=== PATIENT | female | born 1995 | race Caucasian/White ===

== ENCOUNTER 2019-12-20 11:10 | Emergency (ER) | payer MEDICAID, SELFPAY ==
[2019-12-20 11:12] VITALS: BP 135/69; PULSE 100; RESP 16; TEMP 36.4; O2SAT 99; BMI 24.2
--- NOTE | 2019-12-20 11:33 | PC.NURSE ---
PTALSO REQUESTING TO BE TREATED FOR GONORRHEA, CHANGING IN TO [facility]OSP[facility] FOR EXAM
--- NOTE | 2019-12-20 11:43 | ED.SKABFB ---
HPI - Skin/Abscess/Foreign Bdy General Chief complaint: Skin/Abscess/Foreign Body Stated complaint: abscess Time Seen by Provider: 12/20/19 11:42 Source: patient Mode of arrival: ambulatory Limitations: no limitations History of Present Illness HPI narrative: 24 yo female presenting with abscesses to right thigh and right armpit. She is a drug user who skin pops. She was recently started on Methadone and states she barely uses now. She states the lesion to her right thigh has been there for weeks, appears to be healing. Small amount of pus draining from it. No fever or chills at home. She also reports foul smelling urine and increase in vaginal discharge. She reports a history of gonorrhea and states her current symptoms are the same. She is requesting STD treatment. She denies pelvic pain. Related Data Previous Rx's Medication Instructions Recorded cephalexin [Keflex] 500 mg PO QID 7 Days #28 cap 12/20/19 doxycycline monohydrate 100 mg PO BID 7 Days #14 cap 12/20/19 Allergies Allergy/AdvReac Type Severity Reaction Status Date / Time paroxetine [From PAXIL] Allergy Severe S1 Unverified 11/02/19 19:31 lurasidone [From LATUDA] Allergy Unknown CMS Unverified 11/02/19 19:31 REACTION N.K.D.A. Allergy Unknown Uncoded 10/15/17 00:00 Review of Systems Review of Systems: Constitutional: No Fever, No Chills ENT/Mouth: No sore throat, No Rhinorrhea, No Swallowing Difficulty Eyes: No Eye Pain, No Swelling, No Redness Cardiovascular: No Chest Pain, No SOB, No Orthopnea, No Edema Respiratory: No Cough, No Sputum, No Wheezing, No dyspnea Gastrointestinal: No Nausea, No Vomiting, No Diarrhea, No abdominal Pain Genitourinary: No Dysuria, No Urinary Frequency, No Hematuria, +vaginal discharge, + foul smelling urine Musculoskeletal: No joint pain, No Myalgias Skin: + Skin Lesions, No rash Neuro: No Weakness, No Numbness, No Dizziness, No Headache Psych: + Anxiety/Panic, No Depression Heme/Lymph: + Bruising, No Lymphadenopathy Endocrine: No Polyuria, No Polydipsia PMFSH Past Medical History Attestation statement: The following information was validated with the patient. Medical History (Updated 12/20/19 @ 12:26 by DOMINIC Allen) Asthma Social History Social History Advance Directives: No Advance Directives Information Provided: No Physical Exam Vital Signs: Vital Signs: Vital Signs Temp Pulse Resp BP Pulse Ox 12/20/19 11:12 97.5 F 100 16 135/69 99 Body Mass Index 24.2 Appearance: Alert. Oriented X3. No acute distress. HEENT: normal inspection CVS: Normal heart rate and rhythm. Pulses normal. Respiratory: No respiratory distress. Skin: mid right thigh medially has 0.5cm ulceration with pink tissue, rolled borders, minimal purulent drainage, no surrounding erythema. right axilla with flutuanct 2cm boil with surrounding erythema. Extremities: diffuse small ecchymosis over all 4 extremities in various stages of healing. Neuro: Oriented X 3. No motor deficit. No sensory deficit. Refusing pelvic exam. Course Course Course Narrative: patient with multiple complaints however unable to stay in the ER for full evaluation and treatment. She is concerned she has gonorrhea again, she refused pelvic but performed self-swab. She is concerned she has a UTI, UA sent but does not want to stay for results. She left the ER prior to administration of azithromycin and Rocephin that were ordered. will need to contact patient and treat if positive. 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 she eloped prior to d/c instructions. Procedures Abscess I/D Site: upper extremity Side (if applicable): right Technique: needle aspiration Sent for culture/gram staining?: No Irrigation: Yes Packing used?: none MDM - Skin/Abscess/Foreign Bdy MDM Narrative Medical decision making narrative: likely STI, low suspicion for PID given no pelvic pain. abscess is small and localized in axilla, right thigh is healing. low suspicion for bacteremia or sepsis. Lab Data Labs: Lab Results 12/20/19 Range/Units 12:24 Urine Color YELLOW Urine Appearance CLOUDY Urine pH 5.5 (5.0-8.0) Ur Specific [place] 1.025 (1.005-1.025) Urine Protein NEG (NEG-TRACE) MG/DL Urine Glucose (UA) NEG (NEG) MG/DL Urine Ketones NEG (NEG) MG/DL Urine Blood NEG (NEG) Urine Nitrite POS H (NEG) Ur Leukocyte Esterase NEG (NEG) Urine RBC 0 (0) /HPF Urine WBC 15-29 H (0-4) /HPF Ur Squamous Epith Cells 1+ /LPF Urine Bacteria 2+ /LPF Critical Care Time Critical Care Time Critical Care Time: No Discharge Plan Discharge Clinical Impression: STI (sexually transmitted infection) Abscess of skin or subcutaneous tissue Qualifiers: Site of cutaneous abscess: extremity Site of cutaneous abscess of extremity: upper extremity Laterality: right Qualified Code(s): L02.413 - Cutaneous abscess of right upper limb Patient Disposition: Elopement Instructions: Gonorrhea (ED), Abscess Incision and Drainage (DC) Prescriptions: New doxycycline monohydrate 100 mg capsule 100 mg PO BID 7 Days Qty: 14 RF: 0 cephalexin [Keflex] 500 mg capsule 500 mg PO QID 7 Days Qty: 28 RF: 0 Interventions: ED Discharge Assessment Last Done: 12/20/19 12:54 Discharge Date/Time: 12/20/19 12:30
[2019-12-20 12:42] LABS: Glucose Urine UA NEG (NEG); Leukocyte Esterase Urine NEG (NEG); Nitrite Urine POS (NEG); PH 5.5 (5.0-8.0); Specific Gravity - Urine 1.025 (1.005-1.025); Urine Blood NEG (NEG); Urine Ketones NEG (NEG); Urine Protein NEG (NEG-TRACE)
[2019-12-20 12:44] LABS: Appearance Urine CLOUDY; Color Urine YELLOW
--- NOTE | 2019-12-20 12:51 | PC.NURSE ---
rn at bedside pt kept receiving calls on phone, telling rn to hurry up she had to go, specimens collected, meds prepared to given, pt continued on phone stated she won't hurry up and then said i gotta go and walked out, briana kern notified, meds destroyed
[2019-12-20 13:12] LABS: Bacteria Urine 2+ /LPF; RBC Urine 0 /HPF (0); Squamous Epithelial Cell Urine 1+ /LPF
[2019-12-20 15:03] LABS: CT PCR NOT DETECTED (Not Detect.); NG PCR NOT DETECTED (Not Detect.)
== END 2019-12-20 12:30 | disposition left against medical advice (07) ==
PROVIDERS: Physician Assistant; Emergency Provider Emergency Medicine
DX: L02.413 Cutaneous abscess of right upper limb (principal); L02.415 Cutaneous abscess of right lower limb; M79.651 Pain in right thigh; A54.9 Gonococcal infection, unspecified; Z79.899 Other long term (current) drug therapy
CPT/HCPCS: 10060; 81001; 87086; 87088; 87186; 87491; 87591; 96372; 99283; 99284; J0696

== ENCOUNTER 2020-07-16 03:15 | Emergency (ER) | payer MEDICAID, SELFPAY ==
[2020-07-16 03:30] VITALS: BP 136/76; PULSE 96; RESP 16; TEMP 37.2; O2SAT 97; BMI 29.0
[2020-07-16] MEDS: Lidocaine HCl 2 % MPF 5 ML VIAL 20 ML SUBCUT (04:46)
--- NOTE | 2020-07-16 04:49 | ED_ITS ---
HPI - Skin/Abscess/Foreign Bdy General Chief complaint: Skin/Abscess/Foreign Body Stated complaint: Abcess Time Seen by Provider: 07/16/20 04:06 Source: patient Mode of arrival: ambulatory Limitations: no limitations History of Present Illness HPI narrative: 24-year-old female with history of IV drug abuser, presented with multiple abscesses on her body. Patient has no fever or chills. Patient had history of multiple abscesses in the past that she open them herself. Abscesses on the back of right thigh, right hip area, front of the left thigh. This is all areas that the patient used to shoot cocaine in the past. Related Data Previous Rx's Medication Instructions Recorded cephalexin [Keflex] 500 mg PO QID 7 Days #28 cap 12/20/19 doxycycline monohydrate 100 mg PO BID 7 Days #14 cap 12/20/19 doxycycline hyclate 100 mg PO BID #20 tab 07/16/20 Allergies Allergy/AdvReac Type Severity Reaction Status Date / Time paroxetine [From PAXIL] Allergy Severe S1 Unverified 11/02/19 19:31 lurasidone [From LATUDA] Allergy Unknown CMS Unverified 11/02/19 19:31 REACTION N.K.D.A. Allergy Unknown Uncoded 10/15/17 00:00 Review of Systems Review of Systems: All other systems are reviewed and are negative Constitutional: Reports as per HPI and Reports no additional constitutional complaints Eyes: Reports as per HPI and Reports no additional eye complaints Reports system reviewed and no additional complaints, except as documented Cardiovascular: Reports as per HPI and Reports no additional cardiovascular complaints Respiratory: Reports as per HPI and Reports no additional respiratory complaints Gastrointestinal: Reports as per HPI and Reports no additional gastrointestinal complaints Genitourinary: Reports no additional female genitourinary complaints Musculoskeletal: Reports no additional musculoskeletal complaints Skin/Breast: Reports system reviewed and no additional complaints, except as docu Psychiatric: Reports no additional psychiatric complaints Endocrine: Reports no additional endocrine complaints Hematologic/Lymphatic: Reports no additional hematologic/lymphatic complaints Allergic/Immunologic: Reports no additional allergic/immunologic complaints Reports system reviewed and no additional complaints, except as documented and Reports Abnormal speech present [facility] Past Medical History Medical History Asthma Social History Social History Alcohol intake: never Patient Tobacco Use Status: Current everyday Tobacco user Smoked in Last 30 Days: Yes Use of substances other than those prescribed or required for medical reasons: Yes Substance Use Type: Crack/Cocaine, Heroin and IV Drugs Substance Use Frequency: Daily Advance Directives: No Advance Directives Information Provided: No Patient : No Physical Exam Vital Signs: Vital Signs: Last Vital Signs Temp 98.9 F 07/16/20 03:30 Pulse 96 07/16/20 03:30 Resp 16 07/16/20 03:30 BP 136/76 07/16/20 03:30 Pulse Ox 97 07/16/20 03:30 Body Mass Index 29.0 Vital signs have been reviewed as appeared to be correct. Blood pressure normal. Heart rate normal. Respiration rate normal. Temperature normal. Oxygen saturation normal. Appearance: Alert. Oriented X3. No acute distress. Head: Normal external exam. Normocephalic. Atraumatic. No Shelton signs noted. No raccoon eyes noted Eyes: PERRLA. EOMI. Conjunctiva and sclera normal. Eyelids normal. ENT: TM's Normal. Pharynx normal. Uvula midline. Moist mucous membranes. No trismus noted. No drooling noted. No muffled voice noted. Neck: Normal inspection. Neck supple. FROM. No adenopathy. Thyroid Normal. No meningeal signs. No neck mass noted. CVS: Normal heart rate and rhythm. Heart sound normal. No murmurs noted. Pulses normal throughout. Respiratory: No respiratory distress. Painless inspiration. Breath sounds normal. No wheezes/rales/rhonchi noted. Chest nontender. No accessory muscle usage noted or decreased air movement noted. Abdomen: Soft and nontender. Bowel sounds normal in all 4 quadrants. No distention noted. No organomegaly noted. No visible injury noted. Back: No CVA tenderness. Full range of motion noted. Skin: Skin warm and dry. Normal skin color. Normal skin turgor. No rashes/lesions/lacerations noted. Extremities: 4 x 5 cm area of redness, hotness, and tenderness in the back of her right thigh with mild fluctuation. 2 x 2 cm area of redness, hotness, tenderness on the right hip area with no fluctuation. 1 x 1 cm area of redness, hotness, tenderness with no fluctuation on the front of left thigh. Neuro: Oriented X 3. No motor deficit. No sensory deficit. Reflexes normal. Course Course Course Narrative: 24-year-old female with history of IV drug abuser came in with multiple areas of cellulitis/abscesses. Attempt to open 1 abscess not much pus came out, will start the patient on doxycycline. Procedures Abscess I/D Site: lower extremity (Back of her right thigh) Side (if applicable): right Local Anesthetic: lidocaine 2% Amount of anesthesia used (mL): 5 Technique: incised with blade Amount of fluid expressed (mL): 1 Sent for culture/gram staining?: No Irrigation: No Packing used?: none Discharge Plan Discharge Clinical Impression: Cellulitis, Abscess of skin or subcutaneous tissue Patient Disposition: Home, Self-Care Instructions: Cellulitis (ED) Additional Instructions: Come back to the emergency department in 2 days to check on your infected skin areas. Prescriptions: New doxycycline hyclate 100 mg tablet 100 mg PO BID Qty: 20 RF: 0 No Action doxycycline monohydrate 100 mg capsule 100 mg PO BID 7 Days Qty: 14 RF: 0 cephalexin [Keflex] 500 mg capsule 500 mg PO QID 7 Days Qty: 28 RF: 0
== END 2020-07-16 05:02 | disposition home or self-care (01) ==
PROVIDERS: Emergency Provider Emergency Medicine
DX: L02.415 Cutaneous abscess of right lower limb (principal); L03.115 Cellulitis of right lower limb; M79.604 Pain in right leg; F11.10 Opioid abuse, uncomplicated; Z71.51 Drug abuse counseling and surveillance of drug abuser
CPT/HCPCS: 10060; 99284

== ENCOUNTER 2022-01-22 21:40 | Inpatient (IN) | payer MEDICAID, SELFPAY ==
--- NOTE | ~2022-01-22 | XR_ITS ---
EXAMINATION: XR CHEST CLINICAL INFORMATION: Needle in her chest COMPARISON: 12/01/2018 TECHNIQUE: 2 views of the chest were obtained. FINDINGS: Right midlung 2.8 cm nodular opacity. No radiopaque density is noted to suggest a foreign object. No pneumothorax or effusion. Cardiomediastinal silhouette is within normal limits. XR/XR chest 2V IMPRESSION: No radiopaque density is noted to suggest a foreign object. Right midlung 2.8 cm nodular opacity. Recommend further evaluation with CT.
--- NOTE | ~2022-01-22 | CT_ITS ---
EXAMINATION: CT CHEST WITHOUT CONTRAST CLINICAL INFORMATION: Nodular opacity. Evaluate for broken needle. History of asthma. COMPARISON: CXR from 01/22/2022 TECHNIQUE: Multidetector volumetric CT imaging of the chest was done. Axial MIP volume rendering provided. Sagittal and coronal reformatted images were obtained. This CT examination was performed using dose optimization techniques as appropriate, variously including the following: *Automated exposure control *Adjustment of mA and/or kV according to patient size (this includes techniques or standardized protocols for targeted exams where dose is matched to indication/reason for exam; i.e. extremities or head) *Use of iterative reconstruction technique Note that Fleischner Society guidelines would not be followed in a patient of age < 35 years. DLP: 243 mGy-cm FINDINGS: LUNGS AND PLEURA: Trachea and central airways are widely patent and normal in caliber. Small curvilinear opacity of the lateral right upper lobe probably represents focal scarring (148, series 4). Calcified granulomas are present within each lower lobe. 1.8 x 2.4 cm nodular opacity that has small cystic spaces (or focally dilated bronchi) is present in the superior segment of the right lower lobe. Mild groundglass attenuation surrounds the nodule. 0.3 cm nodular focus is present in the anterior right lower lobe (349, series 4). Also, a few small noncalcified nodules are present in the left lower lobe, largest 0.4 cm (293, series 4). No pleural effusion. CARDIOVASCULAR: The heart size is normal. No pericardial effusion. Pulmonary arteries and thoracic aorta are normal in caliber. Coronary artery atherosclerotic calcification is absent. MEDIASTINUM AND LOWER NECK: No mediastinal mass. The esophagus and visualized portion of the thyroid gland are unremarkable. LYMPHATICS: No pathologic sized lymph nodes. UPPER ABDOMEN: Splenomegaly is present. The spleen measures 14.4 cm AP dimension. SKELETAL AND CHEST WALL: No chest wall mass. Thoracic vertebra have normal density, height and alignment. Small anterior vertebral osteophytes are noted within the lower thoracic spine. No evidence of a radiopaque foreign body in the chest. CT/CT chest wo IV con IMPRESSION: * Small calcified and noncalcified nodules are present within lower lobes. * 1.8 x 2.4 cm nodular focus of the superior segment of the right lower lobe is surrounded by a mild groundglass halo. This is a nonspecific lesion. Differential diagnosis would include possible fungal, mycobacterial or bacterial infection, or granulomatous inflammatory process. Neoplasm is unlikely in this young patient with history of asthma. Further workup is recommended. * Splenomegaly is noted.
[2022-01-22 21:46] VITALS: BP 115/72; PULSE 95; RESP 20; TEMP 38.1; O2SAT 95; BMI 30.7
[2022-01-22 23:19] LABS: Strep A Nucleic Acid Negative (Negative)
[2022-01-22 23:28] LABS: COVID-19 Test Negative (Negative); IDNOW Serial# 16C4AD1C; IDNOW Serial# BCCEAD1C; Influenza A Negative (Negative); Influenza B2 Negative (Negative)
[2022-01-23] VITALS (9 sets, daily range): BP systolic 90–107; BP diastolic 42–57; PULSE 60–101; RESP 14–19; TEMP 36.4–39.5; O2SAT 94–98; BMI 30.7
--- NOTE | 2022-01-23 03:00 | ED_ITS ---
HPI - General Adult General Chief complaint: General Medical Stated complaint: Fever, multiple complaints Time Seen by Provider: 01/23/22 03:00 Source: patient Mode of arrival: ambulatory Limitations: no limitations History of Present Illness HPI narrative: Patient IV drug user been having fever since yesterday sore throat body aches coughing with green sputum cellulitic rash all over the body nauseated vomited i n the ER . When patient triaged at 21:40 temperature 100.6 degrees COVID influenza negative strep negative patient also saying that while using IV drugs the right chest wall. Also patient did oral sex and feeling her tongue weird. Patient triaged at 01/22/2022 at 21:40 and was seen at 01/23 0300 Related Data Previous Rx's Medication Instructions Recorded cephalexin 500 mg capsule (Keflex) 500 mg PO QID 7 days #28 caps 12/20/19 doxycycline monohydrate 100 mg 100 mg PO BID 7 days #14 caps 12/20/19 capsule doxycycline hyclate 100 mg tablet 100 mg PO BID #20 tabs 07/16/20 Allergies Allergy/AdvReac Type Severity Reaction Status Date / Time paroxetine [From PAXIL] Allergy Severe S1 Unverified 11/02/19 19:31 lurasidone [From LATUDA] Allergy Unknown CMS Unverified 11/02/19 19:31 REACTION N.K.D.A. Allergy Unknown Uncoded 10/15/17 00:00 Review of Systems Review of Systems: Yes all other systems are reviewed and are negative [facility] Past Medical History Medical History (Updated 01/23/22 @ 06:16 by Oseas Pearson MD) Asthma Mood disorder Substance use disorder Social History Social History Alcohol intake: never Patient Tobacco Use Status: Current everyday Tobacco user Smoked in Last 30 Days: Yes Substance Use Type: Crack/Cocaine, Heroin and Marijuana Substance Use Frequency: Daily Advance Directives: No Advance Directives Information Provided: No Physical Exam ED Vital Signs: Vital Signs - 24 hr 01/22/22 21:46 01/23/22 03:26 01/23/22 04:35 Temperature 100.6 F H 103.1 F H Pulse Rate 95 101 H 90 Respiratory Rate 20 14 19 Blood Pressure 115/72 107/57 L 95/43 L Pulse Oximetry 95 95 94 Oxygen Delivery Method Room Air Room Air Room Air 01/23/22 05:31 Temperature 99.7 F Pulse Rate 88 Respiratory Rate 19 Blood Pressure 96/45 L Pulse Oximetry 95 Oxygen Delivery Method Room Air BMI result Body Mass Index 30.7 Appearance: Alert. Oriented X3. Febrile nauseated Eyes: PERRLA, No Nystagmus ENT: Pharynx normal. Oral Mucosa moist Neck: Normal inspection. Neck supple. CVS: Normal heart rate and rhythm. Pulses normal. Respiratory: No respiratory distress. Equal air entry bilateral, no wheezing/rales/rhonchi Abdomen: Soft and nontender. Bowel sounds are present, no mass palpable, no CVA tenderness Skin: Skin warm and dry. . Normal skin turgor. Multiple Cellulitic areas all over the body Extremities: No lower extremity edema. No calf tenderness every 8 months all over for Neuro: Oriented X 3. No motor deficit. No sensory deficit.No cerebellar signs , cranial nerves II-XII intact Medications Administered Discontinued Medications Generic Name Dose Route Start Last Admin Trade Name Freq PRN Reason Stop Dose Admin Acetaminophen 650 mg 01/23/22 03:14 01/23/22 03:51 Acetaminophen 325 Mg Tablet PO 01/23/22 03:15 650 mg ONCE ONE Administration Sodium Chloride 1,000 mls @ 999 mls/hr 01/23/22 03:13 01/23/22 05:37 Ns IV 01/23/22 04:13 Infused .Q1H1M ONE Infusion Piperacillin Sod/Tazobactam 50 mls @ 100 mls/hr 01/23/22 03:13 01/23/22 05:38 Sod 3.375 gm/ Sodium Chloride IV 01/23/22 03:42 Infused ONCE ONE Infusion Vancomycin HCl 2,000 mg in 520 mls @ 260 mls/hr 01/23/22 03:30 01/23/22 05:17 Vancomycin/Ns IV 01/23/22 05:29 260 mls/hr ONCE ONE Administration Sodium Chloride 1,000 mls @ 999 mls/hr 01/23/22 04:15 01/23/22 05:17 Ns IV 01/23/22 05:15 999 mls/hr .Q1H1M ONE Administration Sodium Chloride 2,585.49 mls @ 2,585.49 mls/hr 01/23/22 05:05 01/23/22 05:36 Ns 30 ml/kg infuse over 1 hr (2585.49 ml) 01/23/22 06:04 Not Given IV .Q1H STA Ibuprofen 600 mg 01/23/22 03:14 01/23/22 03:51 Ibuprofen 600 Mg Tablet PO 01/23/22 03:15 600 mg ONCE ONE Administration Ondansetron HCl 4 mg 01/23/22 03:14 01/23/22 04:30 Ondansetron Hcl 4 Mg/2 Ml Vial IVPUSH 01/23/22 03:15 4 mg ONCE ONE Administration Medical Decision Making Medical Decision Making [facility] Narrative: Patient IVDA user with fever tachycardia and multiple cellulitic patches meeting criteria for sepsis IV fluids patient did have a unprotected sex and history of STI in the past including Gonorrhea. Possible each patient might have disseminated gonorrhea with diffuse joint pain and rash patient was given IV antibiotic to cover staph vancomycin and start on Rocephin admit to hospitalist service Consideration of admission/observation: Consideration of Admission/Observation Lab Attestation: I reviewed the patient's lab results. Discharge Plan Discharge Clinical Impression: Cellulitis, UTI (urinary tract infection), Substance use disorder Patient Disposition: Admitted As Inpatient
[2022-01-23 03:46] LABS: Appearance Urine Turbid; Color Urine Dark Yellow; Glucose Urine UA Negative (Negative); Leukocyte Esterase Urine Large (3+) (Negative); Nitrite Urine Negative (Negative); Specific Gravity - Urine 1.015 (1.005-1.025); UMIC TRIGGER UACC YES; Urine Blood Trace (Negative); Urine Ketones Trace mg/dL (Negative); Urine Protein 30 (1+) mg/dL (Neg-Trace)
[2022-01-23 03:47] LABS: UPreg QC Valid YES; Urine Pregnancy NEGATIVE (NEGATIVE)
[2022-01-23] MEDS: Ibuprofen 600 MG TABLET PO (03:51)
[2022-01-23] MEDS: Acetaminophen 325 MG TABLET 650 MG PO ×2 (03:51→20:57)
[2022-01-23 03:53] LABS: Bacteria Urine 4+ (None Seen); RBC Urine 0-2 /HPF (0-2); Squamous Epithelial Cell Urine >20 /HPF (0-2); UACC Culture Trigger YES; WBC Urine >50 /HPF (0-5)
[2022-01-23 04:00] LABS: Amphetamine Screen Urine Not Detected (Not Detect); Barbiturates, Urine Not Detected (Not Detect); Benzodiazepines Screen Urine Not Detected (Not Detect); Cannabinoid Screen Urine POSITIVE (Not Detect); Cocaine Screen Urine POSITIVE (Not Detect); Fentanyl, urine POSITIVE (Not Detect); Opiate Screen Urine Not Detected (Not Detect); Phencyclidine Screen Urine Not Detected (Not Detect)
[2022-01-23 04:24] LABS: MANUAL DIFF FLAG NO
[2022-01-23 04:26] LABS: Basophils Percent Auto 0.2 % (0-2); Eosinophils Percent Auto 0.1 % (0-4); Hematocrit 35.8 % (37.0-47.0); Hemoglobin 12.4 g/dl (12.0-16.0); Imm Gran Abs Auto 0.07 X10*3/uL (0.00-0.03); Imm Gran Pct Auto 0.6 % (0.0-0.4); Lymphocytes Absolute Auto 0.6 X10*3/uL (1.2-4.9); Lymphocytes Percent Auto 5.2 % (20-40); Mean Corpuscular HGB Conc 34.6 g/dl (31.0-35.0); Mean Corpuscular Hemoglobin 27.6 pg (27.0-33.0); Mean Corpuscular Volume 79.6 fL (80.0-98.0); Mean Platelet Volume 10.4 fL (9.4-12.3); Monocytes Absolute Auto 0.7 X10*3/uL (0.1-1.2); Monocytes Percent Auto 6.2 % (2-11); Neutrophils Absolute Auto 9.9 x10*3/uL (2.0-8.3); Neutrophils Percent Auto 87.7 % (45-73); Platelet Count 143 X10*3/uL (160-400); Red Cell Distribution Width 12.4 % (11.0-16.0); White Blood Count 11.3 X10*3/uL (4.8-10.8)
--- NOTE | 2022-01-23 04:27 | PC.NURSE ---
pt tough stick. multiple nurses and ed techs attempt lab draws and iv insertion. dr calderón inserted iv via ultrasound
[2022-01-23] MEDS: ondansetron HCL 4 MG/2 ML VIAL IVPUSH (04:30)
[2022-01-23] MEDS: 0.9 % Sodium Chloride 1,000 ML 999 ML IV ×2 (04:31→05:17)
[2022-01-23] MEDS: Piperacillin Sodium/Tazobactam 3.375 GM in 0.9 % Sodium Chloride 50 ML IV (04:31)
[2022-01-23 04:39] LABS: Lactic Acid 0.8 mmol/L (0.5-2.0)
[2022-01-23 04:43] LABS: Alanine Aminotransferase 43 U/L (0-31); Albumin Level 3.7 g/dL (3.5-5.0); Alkaline Phosphatase 89 U/L (39-117); Anion Gap 17 (12-20); Aspartate Amino Transferase 55 U/L (5-31); Bilirubin Total 1.4 mg/dL (0.0-1.0); Blood Urea Nitrogen 25 mg/dL (9-16); Calcium 8.3 mg/dL (8.4-10.2); Carbon Dioxide 23 mmol/L (22-29); Chloride 96 mmol/L (96-108); Creatinine Clr Calc Pharmacy 56.1; Estimated Glomerular Filt Rate 37; Glucose Random 75 mg/dL (60-115); Potassium 3.9 mmol/L (3.3-5.1); Sodium 132 mmol/L (135-145)
--- NOTE | 2022-01-23 05:47 | PM.IMHP ---
History of Present Illness Date of Service: 01/23/22 Chief Complaint: Fever This is a 26-year-old female with pertinent history of mood disorder, IV substance use disorder presents to the emergency department for evaluation of fever/generalized malaise/rash. Patient states she has been feeling unwell for the last 2 days. She has generalized body ache, malaise and poor appetite. Patient noticed a rash all over body that started 2 days ago. States her last IV drug use was on the day of presentation, she injected cocaine and heroin in her upper extremity. States her hands hurt and she has difficulty making a wrist. Also has been having right ankle pain. Patient states she had unprotected vaginal and oral intercourse 2 days ago and thinks her symptoms started after. Does have history of gonorrhea in the past. Also has throat ache. Also endorses change in color and smell of urine with occasional urinary hesitancy and frequency. Patient denies chest discomfort, palpitations, abdominal pain, shortness of breath, changes in bowel habits Review of Systems Constitutional: Constitutional: Reports chills, Reports fatigue, Reports fever(s), Reports lethargy and Reports malaise Cardiovascular: Cardiovascular: Reports no additional cardiovascular complaints Respiratory: Respiratory: Reports no additional respiratory complaints Gastrointestinal: Gastrointestinal: Reports no additional gastrointestinal complaints Genitourinary: Genitourinary: Reports urinary frequency, Reports urinary hesitancy and Reports urinary urgency Endocrine: Endocrine: Reports fatigue [facility] Medical History (Updated 01/23/22 @ 06:16 by Oseas Pearson MD) Asthma Mood disorder Substance use disorder Functional capacity: independent ambulation Pertinent family history: Does not know of significant medical history in family members Social History Alcohol intake: never Patient Tobacco Use Status: Current everyday Tobacco user Substance Use Type: Crack/Cocaine, Heroin and IV Drugs Advance Directives: No Advance Directives Information Provided: No Meds Allergies Allergy/AdvReac Type Severity Reaction Status Date / Time paroxetine [From PAXIL] Allergy Severe S1 Unverified 11/02/19 19:31 lurasidone [From LATUDA] Allergy Unknown CMS Unverified 11/02/19 19:31 REACTION N.K.D.A. Allergy Unknown Uncoded 10/15/17 00:00 Active Medications: Current Medications Acetaminophen (Acetaminophen 325 Mg Tablet) 650 mg PO Q6H PRN PRN Reason: Pain, Mild (Pain Scale 1-3) Sodium Chloride (Ns) 2,585.49 mls @ 2,585.49 mls/hr 30 ml/kg infuse over 1 hr (2585.49 ml) IV .Q1H STA Stop: 01/23/22 06:04 Last Admin: 01/23/22 05:36 Dose: Not Given Melatonin (Melatonin 3 Mg Tablet) 6 mg PO BEDTIME PRN PRN Reason: Insomnia Ondansetron HCl (Ondansetron Hcl 4 Mg/2 Ml Vial) 4 mg IVPUSH Q8H PRN PRN Reason: Nausea and Vomiting Pharmacy Consult (Consult Rx Vancomycin Dosing) 1 each MISCELLANE DAILY PRN PRN Reason: Consult order Pharmacy Consult (Consult Rx Perform Med Rec) 1 each MISCELLANE ONCE PRN PRN Reason: Consult order Sodium Chloride (0.9 % Sodium Chloride Flush 3 Ml Syringe) 3 ml IVFLUSH QSHIFT JUDY Physical Exam Vital Signs and Narrative: Vital Signs: Last Vital Signs Temp 99.7 F 01/23/22 05:31 Pulse 88 01/23/22 05:31 Resp 19 01/23/22 05:31 BP 96/45 L 01/23/22 05:31 Pulse Ox 95 01/23/22 05:31 O2 Del Method 01/23/22 05:31 BMI result Body Mass Index 30.7 Young female lying in bed in no distress Neck supple, no JVD Tachycardic with regular rhythm, S1-S2 heard Regular breath sounds bilaterally, no wheezing or crackles appreciated Abdomen soft nontender, no guarding, no rigidity Patient is awake, alert and oriented to self, place, time and person ; no focal motor deficit Skin: Maculopapular rash present over face, chest, extremities ; IV track morales seen on bilateral upper extremities Psych: Normal mood No pedal edema Results Labs CBC and Chem 7: 01/23/22 04:18 01/23/22 04:18 Labs: Laboratory Results - last 24 hr 01/22/22 01/22/22 01/22/22 23:01 23:01 23:01 MCV MCH MCHC RDW Plt Count MPV Immature Gran % (Auto) Neut % (Auto) Lymph % (Auto) [place] % (Auto) Eos % (Auto) Baso % (Auto) Lymph # (Auto) [place] # (Auto) Eos # (Auto) Baso # (Auto) Abs Immat Gran (auto) Absolute Neuts (auto) Absolute Nucleated RBC Nucleated RBC % (auto) Anion Gap Estim Creat Clear Calc Estimated GFR Random Glucose Lactic Acid Calcium Total Bilirubin AST ALT Alkaline Phosphatase Total Protein Albumin Urine Color Urine Appearance Urine pH Ur Specific [place] Urine Protein Urine Glucose (UA) Urine Ketones Urine Blood Urine Nitrite Ur Leukocyte Esterase Urine RBC Urine WBC Ur Squamous Epith Cells Urine Bacteria Hyaline Casts Urine Test Urine Opiates Screen Urine Fentanyl Screen Ur Barbiturates Screen Ur Phencyclidine Scrn Ur Amphetamines Screen U Benzodiazepines Scrn Urine Cocaine Screen U Marijuana (THC) Screen COVID-19 (TONEY) Negative COVID-19 Clin Com See Note Influenza Type A (SHREYA) Negative Influenza Type B (SHREYA) Negative Influenza A & B Note See Note S. pyogenes GrpA SHREYA Negative 01/23/22 01/23/22 01/23/22 03:29 03:29 03:29 MCV MCH MCHC RDW Plt Count MPV Immature Gran % (Auto) Neut % (Auto) Lymph % (Auto) [place] % (Auto) Eos % (Auto) Baso % (Auto) Lymph # (Auto) [place] # (Auto) Eos # (Auto) Baso # (Auto) Abs Immat Gran (auto) Absolute Neuts (auto) Absolute Nucleated RBC Nucleated RBC % (auto) Anion Gap Estim Creat Clear Calc Estimated GFR Random Glucose Lactic Acid Calcium Total Bilirubin AST ALT Alkaline Phosphatase Total Protein Albumin Urine Color Dark Yellow Urine Appearance Turbid Urine pH 5.0 Ur Specific [place] 1.015 Urine Protein 30 (1+) H Urine Glucose (UA) Negative Urine Ketones Trace Urine Blood Trace H Urine Nitrite Negative Ur Leukocyte Esterase Large (3+) H Urine RBC 0-2 Urine WBC >50 H Ur Squamous Epith Cells >20 Urine Bacteria 4+ Hyaline Casts 6-10 Urine Test NEGATIVE Urine Opiates Screen Not Detected Urine Fentanyl Screen POSITIVE H Ur Barbiturates Screen Not Detected Ur Phencyclidine Scrn Not Detected Ur Amphetamines Screen Not Detected U Benzodiazepines Scrn Not Detected Urine Cocaine Screen POSITIVE H U Marijuana (THC) Screen POSITIVE H COVID-19 (TONEY) COVID-19 Clin Com Influenza Type A (SHREYA) Influenza Type B (SHREYA) Influenza A & B Note S. pyogenes GrpA SHREYA 01/23/22 01/23/22 01/23/22 04:18 04:18 04:18 MCV 79.6 L MCH 27.6 MCHC 34.6 RDW 12.4 Plt Count 143 L MPV 10.4 Immature Gran % (Auto) 0.6 H Neut % (Auto) 87.7 H Lymph % (Auto) 5.2 L [place] % (Auto) 6.2 Eos % (Auto) 0.1 Baso % (Auto) 0.2 Lymph # (Auto) 0.6 L [place] # (Auto) 0.7 Eos # (Auto) 0.0 Baso # (Auto) 0.0 Abs Immat Gran (auto) 0.07 H Absolute Neuts (auto) 9.9 H Absolute Nucleated RBC 0.000 Nucleated RBC % (auto) 0.0 Anion Gap 17 Estim Creat Clear Calc 56.1 Estimated GFR 37 Random Glucose 75 Lactic Acid 0.8 Calcium 8.3 L Total Bilirubin 1.4 H AST 55 H ALT 43 H Alkaline Phosphatase 89 Total Protein 7.0 Albumin 3.7 Urine Color Urine Appearance Urine pH Ur Specific [place] Urine Protein Urine Glucose (UA) Urine Ketones Urine Blood Urine Nitrite Ur Leukocyte Esterase Urine RBC Urine WBC Ur Squamous Epith Cells Urine Bacteria Hyaline Casts Urine Test Urine Opiates Screen Urine Fentanyl Screen Ur Barbiturates Screen Ur Phencyclidine Scrn Ur Amphetamines Screen U Benzodiazepines Scrn Urine Cocaine Screen U Marijuana (THC) Screen COVID-19 (TONEY) COVID-19 Clin Com Influenza Type A (SHREYA) Influenza Type B (SHREYA) Influenza A & B Note S. pyogenes GrpA SHREYA Imaging Radiologist's Impressions: Impressions Chest X-Ray 01/22/22 22:06 IMPRESSION: No radiopaque density is noted to suggest a foreign object. Right midlung 2.8 cm nodular opacity. Recommend further evaluation with CT. Assessment and Plan (1) Substance use disorder: Status: Acute (2) Mood disorder: Status: Acute (3) Sepsis: Status: Acute Plan This is a 26-year-old female with pertinent history of mood disorder, IV substance use disorder presents to the emergency department for evaluation of fever/generalized malaise/rash. #. Severe sepsis -pt has UTI + right lower extremity cellulitis. Also concern for DGI in a patient with rash, tenosynovitis and polyarthralgia after unprotected intercourse. Does have history of cellulitis and gonorrhea in the past. -initiating vancomycin and Rocephin empirically. -lactic acid and blood cultures obtained. Also obtaining workup for STIs -resuscitating with IV crystalloids @30cc/kg. #. Acute kidney injury stage I, prerenal due to intravascular volume depletion: Monitor with fluid resuscitation and avoid nephrotoxins #. Substance use disorder: CARE team and addiction team consulted. Monitor for withdrawal. Patient on methadone #. Mood disorder: Continue home medications #. Transamnitis due to sepsis #. Imaging with nodular opacity on chest x-ray. Further evaluating with CT chest, pending. Med rec pending DVT prophylaxis: Lovenox 40 mg daily Full code Regular diet Admit as inpatient and will require two night minimum hospital stay for IV antibiotics Quality Stroke Does the patient have a stroke diagnosis?: No VTE Prior VTE?: No VTE Risk Level:: Medical - low VTE Device Contraindication: Treatment Not Indicated VTE Drug Contraindication: N/A - Med Ordered
[2022-01-23] MEDS: 0.9 % Sodium Chloride Flush 3 ML SYRINGE IVFLUSH ×3 (07:39→22:05)
[2022-01-23] MEDS: cefTRIAXone sodium 1 GM in 0.9 % Sodium Chloride 50 ML IV (07:39)
[2022-01-23 08:03] LABS: HIV AB/AG Nonreactive (Nonreactive); HIV Num 1 0.06 S/CO (0.00-0.99)
[2022-01-23 08:14] LABS: Syphilis Screen Nonreactive (Nonreactive)
[2022-01-23 08:20] LABS: HBS Num1 73.55 mIU/mL (0-7.99); HBc Num1 0.12 S/CO (0.00-0.79); HBsAGNum1 0.22 S/CO (0.00-0.99); Hepatitis A Antibody IgM 0.16 Index (0-0.79); Hepatitis B Core Antibody Nonreactive (Nonreactive); Hepatitis B Surface Antigen Negative (Negative); ~HepC Num1 13.67 S/CO (0.00-0.79); ~Hepatitis A Antibody IgM Nonreactive (Nonreactive); ~Hepatitis B Surface Antibody REACTIVE (Nonreactive); ~Hepatitis C Antibody Reactive (Nonreactive)
--- NOTE | 2022-01-23 08:34 | PHA.PROG ---
Admission Date/Time: January 23, 2022 05:41 Indication: BACTEREMIA Weight in k.183 kg Adjusted body weight in Kg: [place] body weight in Kg: Obesity Dosing Indication % IBW: Serum Creatinine - Last 168 Hours 01/23/22 04:18 Creatinine 1.65 H Estimated CrCl and GFR - Last 168 Hours 01/23/22 04:18 Estim Creat Clear Calc 56.1 Estimated GFR 37 Vancomycin Loading Dose: 2000 MG Current Vancomycin Dosing Regimen: 1250 Q24H Vancomycin Monitoring using AUC goal of 400 - 600 range with trough as surrogate marker: AUC 432; TROUGH 12.6 Date and Time for next Vancomycin Level to be drawn: RANDOM 01/25@0500 Pharmacist Comments on Vancomycin Plan: 15MG/KG CONSIDER GOING TO Q12H DOSING SINCE PATIENT IS IN [place] AND RENAL FUNCTION MAY IMPROVE RAPIDLY Vancomycin dosing will take advantage of [employer] as a clinical decision support tool that uses Bayesian modeling to calculate individual patient's pharmacokinetic parameters and forecast the patient's drug concentration time course with the target goal AUC 24 range of 400 - 600 mg/L/hr.
--- NOTE | 2022-01-23 08:42 | PHA.MEDREC ---
Pharmacy Consult ? Medication Reconciliation Pharmacy has completed the medication reconciliation. Spoke to patient at bedside, she was a good historian. She states she has not taken her meds in about a month. Takes methadone, goes to [facility]
--- NOTE | 2022-01-23 09:17 | HE.PHANOTE ---
Methadone verification recieved Patient receives 120 mg as one dose and is given a take home dose of 20mg. Patient was given enough bottles to last until 01/22/22 Total dose of 140mg daily. Confirmed by Madelaine ALVAREZ with N at [phone]
--- NOTE | 2022-01-23 09:22 | MHC.CM.PN ---
CM spoke with Patient who states that she lives with a Friend and receives her Methadone from [facility] in [facility]. Home/resume Methadone is the goal and CM has initiated and will follow for dc planning. Patient has received [employer] vax x2w and she has no PCP.
[2022-01-23] MEDS: Enoxaparin Sodium 40 MG/0.4 ML SYRINGE SUBCUT (09:54)
--- NOTE | 2022-01-23 11:54 | HO.PM.IMPN ---
Subjective Subjective Date of Service: 01/23/22 Interval History: cc: vaginal discharge, fevers interval history:unchanged Cardiovascular Cardiovascular: Reports no additional cardiovascular complaints Respiratory Respiratory: Reports no additional respiratory complaints Physical Exam Vital Signs: Vital Signs: Last Vital Signs Temp 97.9 F 01/23/22 07:54 Pulse 77 01/23/22 07:54 Resp 16 01/23/22 07:54 BP 98/46 L 01/23/22 07:54 Pulse Ox 96 01/23/22 07:54 O2 Del Method 01/23/22 07:54 BMI result Body Mass Index 30.7 General: AO X 3, ill appearing Resp: CTA bilateral, no accessory muscles used CVS: S1,S2,RRR GI: soft, non tender, non distended Neuro: motor grossly intact, alert Psych: appropriate affect, appropriate insight Objective Data Active Medications Acetaminophen (Acetaminophen 325 Mg Tablet) 650 mg PO Q6H PRN PRN Reason: Pain, Mild (Pain Scale 1-3) Baclofen (Baclofen 10 Mg Tablet) 10 mg PO TID [facility] Bupropion HCl (Bupropion Hcl Xl 300 Mg Tab.Er.24h) 300 mg PO QAM [facility] Enoxaparin Sodium (Enoxaparin Sodium 40 Mg/0.4 Ml Syringe) 40 mg SUBCUT Q24H [facility] Last Admin: 01/23/22 09:54 Dose: 40 mg Documented By: ONOFRE Gabapentin (Gabapentin 400 Mg Capsule) 800 mg PO TID [facility] Ceftriaxone Sodium 1 gm/ (Sodium Chloride) 50 mls @ 100 mls/hr IV Q24H [facility] Last Infusion: 01/23/22 08:09 Dose: 0 mls/hr Documented By: ONOFRE Vancomycin HCl 1,250 mg/ (Sodium Chloride) 250 mls @ 166.667 mls/hr IV Q24H [facility] Melatonin (Melatonin 3 Mg Tablet) 6 mg PO BEDTIME PRN PRN Reason: Insomnia Ondansetron HCl (Ondansetron Hcl 4 Mg/2 Ml Vial) 4 mg IVPUSH Q8H PRN PRN Reason: Nausea and Vomiting Pharmacy Consult (Consult Rx Vancomycin Dosing) 1 each MISCELLANE DAILY PRN PRN Reason: Consult order Pharmacy Consult (Consult Rx Perform Med Rec) 1 each MISCELLANE ONCE PRN PRN Reason: Consult order Pharmacy Consult (Consult Rx Vancomycin Dosing) 1 each MISCELLANE DAILY PRN PRN Reason: Consult order Sodium Chloride (0.9 % Sodium Chloride Flush 3 Ml Syringe) 3 ml IVFLUSH QSHIFT JUDY Last Admin: 01/23/22 07:39 Dose: 3 ml Documented By: ONOFRE Labs CBC & Chem 7: 01/23/22 04:18 01/23/22 04:18 Labs: Laboratory Results - last 24 hr 01/22/22 01/22/22 01/22/22 23:01 23:01 23:01 MCV MCH MCHC RDW Plt Count MPV Immature Gran % (Auto) Neut % (Auto) Lymph % (Auto) [place] % (Auto) Eos % (Auto) Baso % (Auto) Lymph # (Auto) [place] # (Auto) Eos # (Auto) Baso # (Auto) Abs Immat Gran (auto) Absolute Neuts (auto) Absolute Nucleated RBC Nucleated RBC % (auto) Anion Gap Estim Creat Clear Calc Estimated GFR Random Glucose Lactic Acid Calcium Total Bilirubin AST ALT Alkaline Phosphatase Total Protein Albumin Urine Color Urine Appearance Urine pH Ur Specific [place] Urine Protein Urine Glucose (UA) Urine Ketones Urine Blood Urine Nitrite Ur Leukocyte Esterase Urine RBC Urine WBC Ur Squamous Epith Cells Urine Bacteria Hyaline Casts Urine Test Urine Opiates Screen Urine Fentanyl Screen Ur Barbiturates Screen Ur Phencyclidine Scrn Ur Amphetamines Screen U Benzodiazepines Scrn Urine Cocaine Screen U Marijuana (THC) Screen T.pallidum Ab (EIA) COVID-19 (TONEY) Negative COVID-19 Clin Com See Note Hepatitis A IgM Ab Hep Bs Antigen Hep Bs Antibody Hep B Core Total Ab Hepatitis C Ab (EIA) HIV 1&2 Ab/P24 Ag 4thGn Influenza Type A (SHREYA) Negative Influenza Type B (SHREYA) Negative Influenza A & B Note See Note S. pyogenes GrpA SHREYA Negative 01/23/22 01/23/22 01/23/22 03:29 03:29 03:29 MCV MCH MCHC RDW Plt Count MPV Immature Gran % (Auto) Neut % (Auto) Lymph % (Auto) [place] % (Auto) Eos % (Auto) Baso % (Auto) Lymph # (Auto) [place] # (Auto) Eos # (Auto) Baso # (Auto) Abs Immat Gran (auto) Absolute Neuts (auto) Absolute Nucleated RBC Nucleated RBC % (auto) Anion Gap Estim Creat Clear Calc Estimated GFR Random Glucose Lactic Acid Calcium Total Bilirubin AST ALT Alkaline Phosphatase Total Protein Albumin Urine Color Dark Yellow Urine Appearance Turbid Urine pH 5.0 Ur Specific [place] 1.015 Urine Protein 30 (1+) H Urine Glucose (UA) Negative Urine Ketones Trace Urine Blood Trace H Urine Nitrite Negative Ur Leukocyte Esterase Large (3+) H Urine RBC 0-2 Urine WBC >50 H Ur Squamous Epith Cells >20 Urine Bacteria 4+ Hyaline Casts 6-10 Urine Test NEGATIVE Urine Opiates Screen Not Detected Urine Fentanyl Screen POSITIVE H Ur Barbiturates Screen Not Detected Ur Phencyclidine Scrn Not Detected Ur Amphetamines Screen Not Detected U Benzodiazepines Scrn Not Detected Urine Cocaine Screen POSITIVE H U Marijuana (THC) Screen POSITIVE H T.pallidum Ab (EIA) COVID-19 (TONEY) COVID-19 Clin Com Hepatitis A IgM Ab Hep Bs Antigen Hep Bs Antibody Hep B Core Total Ab Hepatitis C Ab (EIA) HIV 1&2 Ab/P24 Ag 4thGn Influenza Type A (SHREYA) Influenza Type B (SHREYA) Influenza A & B Note S. pyogenes GrpA SHREYA 01/23/22 01/23/22 01/23/22 04:18 04:18 04:18 MCV 79.6 L MCH 27.6 MCHC 34.6 RDW 12.4 Plt Count 143 L MPV 10.4 Immature Gran % (Auto) 0.6 H Neut % (Auto) 87.7 H Lymph % (Auto) 5.2 L [place] % (Auto) 6.2 Eos % (Auto) 0.1 Baso % (Auto) 0.2 Lymph # (Auto) 0.6 L [place] # (Auto) 0.7 Eos # (Auto) 0.0 Baso # (Auto) 0.0 Abs Immat Gran (auto) 0.07 H Absolute Neuts (auto) 9.9 H Absolute Nucleated RBC 0.000 Nucleated RBC % (auto) 0.0 Anion Gap 17 Estim Creat Clear Calc 56.1 Estimated GFR 37 Random Glucose 75 Lactic Acid 0.8 Calcium 8.3 L Total Bilirubin 1.4 H AST 55 H ALT 43 H Alkaline Phosphatase 89 Total Protein 7.0 Albumin 3.7 Urine Color Urine Appearance Urine pH Ur Specific [place] Urine Protein Urine Glucose (UA) Urine Ketones Urine Blood Urine Nitrite Ur Leukocyte Esterase Urine RBC Urine WBC Ur Squamous Epith Cells Urine Bacteria Hyaline Casts Urine Test Urine Opiates Screen Urine Fentanyl Screen Ur Barbiturates Screen Ur Phencyclidine Scrn Ur Amphetamines Screen U Benzodiazepines Scrn Urine Cocaine Screen U Marijuana (THC) Screen T.pallidum Ab (EIA) COVID-19 (TONEY) COVID-19 Clin Com Hepatitis A IgM Ab Hep Bs Antigen Hep Bs Antibody Hep B Core Total Ab Hepatitis C Ab (EIA) HIV 1&2 Ab/P24 Ag 4thGn Influenza Type A (SHREYA) Influenza Type B (SHREYA) Influenza A & B Note S. pyogenes GrpA SHREYA 01/23/22 01/23/22 01/23/22 06:40 06:40 06:40 MCV MCH MCHC RDW Plt Count MPV Immature Gran % (Auto) Neut % (Auto) Lymph % (Auto) [place] % (Auto) Eos % (Auto) Baso % (Auto) Lymph # (Auto) [place] # (Auto) Eos # (Auto) Baso # (Auto) Abs Immat Gran (auto) Absolute Neuts (auto) Absolute Nucleated RBC Nucleated RBC % (auto) Anion Gap Estim Creat Clear Calc Estimated GFR Random Glucose Lactic Acid Calcium Total Bilirubin AST ALT Alkaline Phosphatase Total Protein Albumin Urine Color Urine Appearance Urine pH Ur Specific [place] Urine Protein Urine Glucose (UA) Urine Ketones Urine Blood Urine Nitrite Ur Leukocyte Esterase Urine RBC Urine WBC Ur Squamous Epith Cells Urine Bacteria Hyaline Casts Urine Test Urine Opiates Screen Urine Fentanyl Screen Ur Barbiturates Screen Ur Phencyclidine Scrn Ur Amphetamines Screen U Benzodiazepines Scrn Urine Cocaine Screen U Marijuana (THC) Screen T.pallidum Ab (EIA) Nonreactive COVID-19 (TONEY) COVID-19 Clin Com Hepatitis A IgM Ab Nonreactive Hep Bs Antigen Negative Hep Bs Antibody REACTIVE Hep B Core Total Ab Nonreactive Hepatitis C Ab (EIA) Reactive H HIV 1&2 Ab/P24 Ag 4thGn Nonreactive Influenza Type A (SHREYA) Influenza Type B (SHREYA) Influenza A & B Note S. pyogenes GrpA SHREYA Assessment and Plan (1) Cellulitis: Status: Acute Plan 26-year-old female with pertinent history of mood disorder, IV substance use disorder presented to the emergency department for evaluation of fever/generalized malaise/rash. Severe sepsis multiple sources UTI, cellulitis, STI s/w vanc, ceftriaxone follow up cultures ID Acute kidney injury iv hydration, monitor bmp opiate dependence restart methadone after dose confirmation DVT prophylaxis:? Lovenox 40 mg daily Full code reason for continued hospitalization:awaiting defervesence Quality Stroke Does the patient have a stroke diagnosis?: No VTE Prior VTE?: No VTE Risk Level:: Medical - low VTE Device Contraindication: Treatment Not Indicated VTE Drug Contraindication: N/A - Med Ordered
[2022-01-23] MEDS: methADONE HCl 20 MG/2 ML ORAL.CONC 120 MG PO (12:23)
[2022-01-23] MEDS: Baclofen 10 MG TABLET PO ×2 (14:24→20:34)
[2022-01-23] MEDS: Gabapentin 400 MG CAPSULE 800 MG PO ×2 (14:24→20:34)
--- NOTE | 2022-01-23 15:56 | W.PM.IDCN ---
History of Present Illness Data of Consult Service Date: 01/23/22 Requesting physician: Guillermo Mayberry Primary Care Provider: Unknown Physician HPI Reason for consult: bacteremia She presents with right leg redness and pain for a day. She shot up opioids into dorsal surface of foot two days ago. 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 She reports gonorrhea in past and engaging in oral intercourse with male. Review of Systems Review of Systems: Yes all other systems are reviewed and are negative PMFSH Past Medical History Medical History Asthma Mood disorder Substance use disorder Functional capacity: independent ambulation Family History Family history: reviewed and not pertinent Social History Social History Alcohol intake: never Patient Tobacco Use Status: Current everyday Tobacco user Smoked in Last 30 Days: Yes Substance Use Type: Crack/Cocaine, Heroin and Marijuana Substance Use Frequency: Daily Advance Directives: No Advance Directives Information Provided: No service: No Current occupational status: unemployed Meds Allergies Allergy/AdvReac Type Severity Reaction Status Date / Time paroxetine [From PAXIL] Allergy Severe S1 Unverified 11/02/19 19:31 lurasidone [From LATUDA] Allergy Unknown CMS Unverified 11/02/19 19:31 REACTION Active Medications: Current Medications Acetaminophen (Acetaminophen 325 Mg Tablet) 650 mg PO Q6H PRN PRN Reason: Pain, Mild (Pain Scale 1-3) Baclofen (Baclofen 10 Mg Tablet) 10 mg PO TID [facility] Last Admin: 01/23/22 14:24 Dose: 10 mg Bupropion HCl (Bupropion Hcl Xl 300 Mg Tab.Er.24h) 300 mg PO DAILY [facility] Last Admin: 01/23/22 12:07 Dose: Not Given Enoxaparin Sodium (Enoxaparin Sodium 40 Mg/0.4 Ml Syringe) 40 mg SUBCUT Q24H [facility] Last Admin: 01/23/22 09:54 Dose: 40 mg Gabapentin (Gabapentin 400 Mg Capsule) 800 mg PO TID [facility] Last Admin: 01/23/22 14:24 Dose: 800 mg Ceftriaxone Sodium 1 gm/ (Sodium Chloride) 50 mls @ 100 mls/hr IV Q24H [facility] Last Infusion: 01/23/22 08:09 Dose: Infused Vancomycin HCl 1,250 mg/ (Sodium Chloride) 250 mls @ 166.667 mls/hr IV Q24H [facility] Melatonin (Melatonin 3 Mg Tablet) 6 mg PO BEDTIME PRN PRN Reason: Insomnia Methadone HCl (Methadone Hcl 20 Mg/2 Ml Oral.Conc) 20 mg PO DAILY@1700 [facility] Methadone HCl (Methadone Hcl 20 Mg/2 Ml Oral.Conc) 120 mg PO DAILY [facility] Last Admin: 01/23/22 12:23 Dose: 120 mg Ondansetron HCl (Ondansetron Hcl 4 Mg/2 Ml Vial) 4 mg IVPUSH Q8H PRN PRN Reason: Nausea and Vomiting Pharmacy Consult (Consult Rx Vancomycin Dosing) 1 each MISCELLANE DAILY PRN PRN Reason: Consult order Pharmacy Consult (Consult Rx Perform Med Rec) 1 each MISCELLANE ONCE PRN PRN Reason: Consult order Pharmacy Consult (Consult Rx Vancomycin Dosing) 1 each MISCELLANE DAILY PRN PRN Reason: Consult order Sodium Chloride (0.9 % Sodium Chloride Flush 3 Ml [facility]) [facility] Admin: 01/23/22 14:24 Dose: 3 ml Home Medications Medication Instructions Recorded Confirmed Last Taken Type baclofen 10 mg tablet 1 tab PO TID 01/23/22 01/23/22 12/16/21 History bupropion HCl 300 mg 24 hr tablet, 1 tab PO QAM 01/23/22 01/23/22 12/16/21 History extended release gabapentin 800 mg tablet 1 tab PO TID 01/23/22 01/23/22 12/16/21 History methadone 10 mg/mL oral 20 mg PO QPM 01/23/22 01/23/22 Unknown History concentrate (Methadone Intensol) methadone 10 mg/mL oral 120 mg PO QAM 01/23/22 01/23/22 Unknown History concentrate (Methadone Intensol) Physical Exam Vital Signs: Vital Signs: Last Vital Signs Temp 98.4 F 01/23/22 14:57 Pulse 60 01/23/22 14:57 Resp 16 01/23/22 14:57 BP 90/42 L 01/23/22 14:57 Pulse Ox 98 01/23/22 14:57 O2 Del Method 01/23/22 14:57 BMI result Body Mass Index 30.7 Const: General: cooperative HEENT: Head: Yes normal to inspection Face and sinus: Yes normal facial exam Mouth: Normal oral and palatal mucosa present Teeth and gingiva: dentition normal Eyes: General: appearance normal, both eyes and all related structures Pupils: Equal, round and reactive pupils present Resp: Effort & Inspection: normal respiratory effort Cardio: Rate: regular rate Rhythm: regular rhythm GI: Palpation (GI): Soft to palpation and nontender : General: Yes no CVA tenderness Back/Spine/Pelvis: Back: no CVA tenderness Skin: General skin exam: no rashes or lesions noted Neuro: General: moves all extremities Cranial nerves: Yes Equal, round and reactive pupils present Extrem: Other: right leg erythema foot to knee with mild swelling dorsum foot Psych: Appearance: grossly normal Results Labs CBC & Chem 7: 01/23/22 04:18 01/23/22 04:18 Labs: Short CBC 01/23/22 Range/Units 04:18 WBC 11.3 H (4.8-10.8) X10*3/uL Hgb 12.4 (12.0-16.0) g/dl Hct 35.8 L (37.0-47.0) % Plt Count 143 L (160-400) X10*3/uL BMP 01/23/22 04:18 Sodium 132 L Potassium 3.9 Chloride 96 Carbon Dioxide 23 BUN 25 H Creatinine 1.65 H Calcium 8.3 L Liver Function 01/23/22 Range/Units 04:18 Total Bilirubin 1.4 H (0.0-1.0) mg/dL AST 55 H (5-31) U/L ALT 43 H (0-31) U/L Alkaline Phosphatase 89 (39-117) U/L Albumin 3.7 (3.5-5.0) g/dL Urine 01/23/22 Range/Units 03:29 Urine Color Dark Yellow Urine Appearance Turbid Urine pH 5.0 (5.0-9.0) Ur Specific [place] 1.015 (1.005-1.025) Urine Protein 30 (1+) H (Neg-Trace) mg/dL Urine Glucose (UA) Negative (Negative) mg/dL Microbiology Microbiology Results: Microbiology 01/23/22 04:18 Blood - Venous Blood Culture - Preliminary Prelim: GPC Gram Stain only 01/23/22 04:18 Blood - Venous Blood Culture - Preliminary Prelim: GPC Gram Stain only Assessment and Plan (1) Cellulitis: Status: Acute (2) Sepsis: Status: Acute She has possible endocarditis gonorrhea or staph could be causes (3) Substance use disorder: Status: Acute Plan Continue Vancomycin and Zosyn for now Adjust tomorrow based on sensitivities Check HIV again Would involve substance consult. Check echo evaluate endocarditis. Time Spent With Patient Time: Total time managing care of this patient today ____ minutes.
[2022-01-23] MEDS: methADONE HCl 20 MG/2 ML ORAL.CONC PO (17:40)
--- NOTE | 2022-01-23 17:48 | PC.NURSE ---
Spoke with Dr Mayberry regarding need for IV fluids, states patient does not need IV fluids as long as she has been eating. patient eating and drinking without any difficulty.
--- NOTE | 2022-01-23 17:49 | HO.ADDICT_ITS ---
History of Present Illness Date of Service: 01/23/2022 Chief Complaint: Fever Reason for Consult: IVDU Sources of Information: patient interviewed and chart reviewed HPI Narrative: Patient is a 26 year old female currently medically admitted with cellulitis secondary to IVDU. Seen in room 4 of main ED while awaiting transfer to medical floor. Awake, but reporting feeling very tired, and engaged in interview. Patient reports cocaine and opioid use Identifies cocaine as my main problem and feels this is what led to medical admission. She is engaged in treatment for OUD at [facility] and has split methadone dose of 120mg AM and 20mg PM. Denies any other substance use Discussed safer injection techniques and patient reprots she uses new syringes every time she uses. She reports having a safe place to live in [facility] and at this time is not interested in additional services/resources for substance use. Review of Systems Constitutional: Reports difficulty sleeping and Reports malaise Diagnostics Vital Signs (24Hr): Vital Signs - 24 hr 01/22/22 21:46 01/23/22 03:26 01/23/22 04:35 Temperature 100.6 F H 103.1 F H Pulse Rate 95 101 H 90 Respiratory Rate 20 14 19 Blood Pressure 115/72 107/57 L 95/43 L Pulse Oximetry 95 95 94 Oxygen Delivery Method Room Air Room Air Room Air 01/23/22 05:31 01/23/22 05:50 01/23/22 06:06 Temperature 99.7 F Pulse Rate 88 82 84 Respiratory Rate 19 Blood Pressure 96/45 L 97/47 L 102/44 L Pulse Oximetry 95 Oxygen Delivery Method Room Air 01/23/22 06:26 01/23/22 07:54 01/23/22 14:57 Temperature 97.9 F 98.4 F Pulse Rate 79 77 60 Respiratory Rate 16 16 Blood Pressure 101/47 L 98/46 L 90/42 L Pulse Oximetry 96 98 Oxygen Delivery Method Room Air Room Air 01/23/22 17:36 Temperature 97.6 F Pulse Rate 72 Respiratory Rate 16 Blood Pressure 94/50 L Pulse Oximetry 95 Oxygen Delivery Method Room Air BMI result Body Mass Index 30.7 Labs Results: 01/23/22 04:18 01/23/22 04:18 Labs: Laboratory Results - last 48 hr 01/22/22 01/22/22 01/22/22 23:01 23:01 23:01 WBC RBC Hgb Hct MCV MCH MCHC RDW Plt Count MPV Immature Gran % (Auto) Neut % (Auto) Lymph % (Auto) [place] % (Auto) Eos % (Auto) Baso % (Auto) Lymph # (Auto) [place] # (Auto) Eos # (Auto) Baso # (Auto) Abs Immat Gran (auto) Absolute Neuts (auto) Absolute Nucleated RBC Nucleated RBC % (auto) Sodium Potassium Chloride Carbon Dioxide Anion Gap BUN Creatinine Estim Creat Clear Calc Estimated GFR Random Glucose Lactic Acid Calcium Total Bilirubin AST ALT Alkaline Phosphatase Total Protein Albumin Urine Color Urine Appearance Urine pH Ur Specific [place] Urine Protein Urine Glucose (UA) Urine Ketones Urine Blood Urine Nitrite Ur Leukocyte Esterase Urine RBC Urine WBC Ur Squamous Epith Cells Urine Bacteria Hyaline Casts Urine Test Urine Opiates Screen Urine Fentanyl Screen Ur Barbiturates Screen Ur Phencyclidine Scrn Ur Amphetamines Screen U Benzodiazepines Scrn Urine Cocaine Screen U Marijuana (THC) Screen T.pallidum Ab (EIA) COVID-19 (TONEY) Negative COVID-19 Clin Com See Note Hepatitis A IgM Ab Hep Bs Antigen Hep Bs Antibody Hep B Core Total Ab Hepatitis C Ab (EIA) HIV 1&2 Ab/P24 Ag 4thGn Influenza Type A (SHREYA) Negative Influenza Type B (SHREYA) Negative Influenza A & B Note See Note S. pyogenes GrpA SHREYA Negative 01/23/22 01/23/22 01/23/22 03:29 03:29 03:29 WBC RBC Hgb Hct MCV MCH MCHC RDW Plt Count MPV Immature Gran % (Auto) Neut % (Auto) Lymph % (Auto) [place] % (Auto) Eos % (Auto) Baso % (Auto) Lymph # (Auto) [place] # (Auto) Eos # (Auto) Baso # (Auto) Abs Immat Gran (auto) Absolute Neuts (auto) Absolute Nucleated RBC Nucleated RBC % (auto) Sodium Potassium Chloride Carbon Dioxide Anion Gap BUN Creatinine Estim Creat Clear Calc Estimated GFR Random Glucose Lactic Acid Calcium Total Bilirubin AST ALT Alkaline Phosphatase Total Protein Albumin Urine Color Dark Yellow Urine Appearance Turbid Urine pH 5.0 Ur Specific [place] 1.015 Urine Protein 30 (1+) H Urine Glucose (UA) Negative Urine Ketones Trace Urine Blood Trace H Urine Nitrite Negative Ur Leukocyte Esterase Large (3+) H Urine RBC 0-2 Urine WBC >50 H Ur Squamous Epith Cells >20 Urine Bacteria 4+ Hyaline Casts 6-10 Urine Test NEGATIVE Urine Opiates Screen Not Detected Urine Fentanyl Screen POSITIVE H Ur Barbiturates Screen Not Detected Ur Phencyclidine Scrn Not Detected Ur Amphetamines Screen Not Detected U Benzodiazepines Scrn Not Detected Urine Cocaine Screen POSITIVE H U Marijuana (THC) Screen POSITIVE H T.pallidum Ab (EIA) COVID-19 (TONEY) COVID-19 Clin Com Hepatitis A IgM Ab Hep Bs Antigen Hep Bs Antibody Hep B Core Total Ab Hepatitis C Ab (EIA) HIV 1&2 Ab/P24 Ag 4thGn Influenza Type A (SHREYA) Influenza Type B (SHREYA) Influenza A & B Note S. pyogenes GrpA SHREYA 01/23/22 01/23/22 01/23/22 04:18 04:18 04:18 WBC 11.3 H RBC 4.50 Hgb 12.4 Hct 35.8 L MCV 79.6 L MCH 27.6 MCHC 34.6 RDW 12.4 Plt Count 143 L MPV 10.4 Immature Gran % (Auto) 0.6 H Neut % (Auto) 87.7 H Lymph % (Auto) 5.2 L [place] % (Auto) 6.2 Eos % (Auto) 0.1 Baso % (Auto) 0.2 Lymph # (Auto) 0.6 L [place] # (Auto) 0.7 Eos # (Auto) 0.0 Baso # (Auto) 0.0 Abs Immat Gran (auto) 0.07 H Absolute Neuts (auto) 9.9 H Absolute Nucleated RBC 0.000 Nucleated RBC % (auto) 0.0 Sodium 132 L Potassium 3.9 Chloride 96 Carbon Dioxide 23 Anion Gap 17 BUN 25 H Creatinine 1.65 H Estim Creat Clear Calc 56.1 Estimated GFR 37 Random Glucose 75 Lactic Acid 0.8 Calcium 8.3 L Total Bilirubin 1.4 H AST 55 H ALT 43 H Alkaline Phosphatase 89 Total Protein 7.0 Albumin 3.7 Urine Color Urine Appearance Urine pH Ur Specific [place] Urine Protein Urine Glucose (UA) Urine Ketones Urine Blood Urine Nitrite Ur Leukocyte Esterase Urine RBC Urine WBC Ur Squamous Epith Cells Urine Bacteria Hyaline Casts Urine Test Urine Opiates Screen Urine Fentanyl Screen Ur Barbiturates Screen Ur Phencyclidine Scrn Ur Amphetamines Screen U Benzodiazepines Scrn Urine Cocaine Screen U Marijuana (THC) Screen T.pallidum Ab (EIA) COVID-19 (TONEY) COVID-19 Clin Com Hepatitis A IgM Ab Hep Bs Antigen Hep Bs Antibody Hep B Core Total Ab Hepatitis C Ab (EIA) HIV 1&2 Ab/P24 Ag 4thGn Influenza Type A (SHREYA) Influenza Type B (SHREYA) Influenza A & B Note S. pyogenes GrpA SHREYA 01/23/22 01/23/22 01/23/22 06:40 06:40 06:40 WBC RBC Hgb Hct MCV MCH MCHC RDW Plt Count MPV Immature Gran % (Auto) Neut % (Auto) Lymph % (Auto) [place] % (Auto) Eos % (Auto) Baso % (Auto) Lymph # (Auto) [place] # (Auto) Eos # (Auto) Baso # (Auto) Abs Immat Gran (auto) Absolute Neuts (auto) Absolute Nucleated RBC Nucleated RBC % (auto) Sodium Potassium Chloride Carbon Dioxide Anion Gap BUN Creatinine Estim Creat Clear Calc Estimated GFR Random Glucose Lactic Acid Calcium Total Bilirubin AST ALT Alkaline Phosphatase Total Protein Albumin Urine Color Urine Appearance Urine pH Ur Specific [place] Urine Protein Urine Glucose (UA) Urine Ketones Urine Blood Urine Nitrite Ur Leukocyte Esterase Urine RBC Urine WBC Ur Squamous Epith Cells Urine Bacteria Hyaline Casts Urine Test Urine Opiates Screen Urine Fentanyl Screen Ur Barbiturates Screen Ur Phencyclidine Scrn Ur Amphetamines Screen U Benzodiazepines Scrn Urine Cocaine Screen U Marijuana (THC) Screen T.pallidum Ab (EIA) Nonreactive COVID-19 (TONEY) COVID-19 Clin Com Hepatitis A IgM Ab Nonreactive Hep Bs Antigen Negative Hep Bs Antibody REACTIVE Hep B Core Total Ab Nonreactive Hepatitis C Ab (EIA) Reactive H HIV 1&2 Ab/P24 Ag 4thGn Nonreactive Influenza Type A (SHREYA) Influenza Type B (SHREYA) Influenza A & B Note S. pyogenes GrpA SHREYA Imaging Radiology Impressions: ITS Impressions Chest X-Ray 01/22/22 22:06 IMPRESSION: No radiopaque density is noted to suggest a foreign object. Right midlung 2.8 cm nodular opacity. Recommend further evaluation with CT. Chest CT 01/23/22 07:55 IMPRESSION: * Small calcified and noncalcified nodules are present within lower lobes. * 1.8 x 2.4 cm nodular focus of the superior segment of the right lower lobe is surrounded by a mild groundglass halo. This is a nonspecific lesion. Differential diagnosis would include possible fungal, mycobacterial or bacterial infection, or granulomatous inflammatory process. Neoplasm is unlikely in this young patient with history of asthma. Further workup is recommended. * Splenomegaly is noted. Mental Status Exam Mental Status Exam Patient Appearance: Appropriate (covered up with blanket, wearing winter hat) Patient Behavior: Appropriate and Cooperative Affect Description: Calm Medications Medications Current Medications Acetaminophen (Acetaminophen 325 Mg Tablet) 650 mg PO Q6H PRN PRN Reason: Pain, Mild (Pain Scale 1-3) Baclofen (Baclofen 10 Mg Tablet) 10 mg PO TID [facility] Last Admin: 01/23/22 14:24 Dose: 10 mg Bupropion HCl (Bupropion Hcl Xl 300 Mg Tab.Er.24h) 300 mg PO DAILY [facility] Last Admin: 01/23/22 12:07 Dose: Not Given Enoxaparin Sodium (Enoxaparin Sodium 40 Mg/0.4 Ml Syringe) 40 mg SUBCUT Q24H [facility] Last Admin: 01/23/22 09:54 Dose: 40 mg Gabapentin (Gabapentin 400 Mg Capsule) 800 mg PO TID [facility] Last Admin: 01/23/22 14:24 Dose: 800 mg Ceftriaxone Sodium 1 gm/ (Sodium Chloride) 50 mls @ 100 mls/hr IV Q24H [facility] Last Infusion: 01/23/22 08:09 Dose: Infused Vancomycin HCl 1,250 mg/ (Sodium Chloride) 250 mls @ 166.667 mls/hr IV Q24H [facility] Melatonin (Melatonin 3 Mg Tablet) 6 mg PO BEDTIME PRN PRN Reason: Insomnia Methadone HCl (Methadone Hcl 20 Mg/2 Ml Oral.Conc) 20 mg PO DAILY@1700 [facility] Last Admin: 01/23/22 17:40 Dose: 20 mg Methadone HCl (Methadone Hcl 20 Mg/2 Ml Oral.Conc) 120 mg PO DAILY [facility] Last Admin: 01/23/22 12:23 Dose: 120 mg Ondansetron HCl (Ondansetron Hcl 4 Mg/2 Ml Vial) 4 mg IVPUSH Q8H PRN PRN Reason: Nausea and Vomiting Pharmacy Consult (Consult Rx Vancomycin Dosing) 1 each MISCELLANE DAILY PRN PRN Reason: Consult order Pharmacy Consult (Consult Rx Perform Med Rec) 1 each MISCELLANE ONCE PRN PRN Reason: Consult order Pharmacy Consult (Consult Rx Vancomycin Dosing) 1 each MISCELLANE DAILY PRN PRN Reason: Consult order Sodium Chloride (0.9 % Sodium Chloride Flush 3 Ml Syringe) 3 ml IVFLUSH QSHIFT [facility] Last Admin: 01/23/22 14:24 Dose: 3 ml Allergies Allergies Allergy/AdvReac Type Severity Reaction Status Date / Time paroxetine [From PAXIL] Allergy Severe S1 Unverified 11/02/19 19:31 lurasidone [From LATUDA] Allergy Unknown CMS Unverified 11/02/19 19:31 REACTION Assessment & Plan Assessment & Plan (1) Opioid use disorder: Status: Acute Code(s): F11.90 - Opioid use, unspecified, uncomplicated Assessment and Plan: * risk reduction discussion * continue methadone as prescribed outpatient * take home narcan at time of discharge (2) Cocaine use disorder: Status: Acute Code(s): F14.10 - Cocaine abuse, uncomplicated Total time managing care of this patient today __35__ minutes. PMFSH Past Medical History Medical History Asthma Mood disorder Substance use disorder Family History Family history: reviewed and not pertinent Social History Social History Alcohol intake: never Patient Tobacco Use Status: Current everyday Tobacco user Smoked in Last 30 Days: Yes Substance Use Type: Crack/Cocaine, Heroin and Marijuana Substance Use Frequency: Daily Advance Directives: No Advance Directives Information Provided: No service: No Current occupational status: unemployed
--- NOTE | 2022-01-23 18:30 | PC.NURSE ---
Pt arrived via ed stretcher from ed bed 4. noted to be awake and alert without distress noted. Pt called RN to bedside to inquire about pending dinner tray as she reports not eating breakfast or lunch today and being really hungry. Pt overheard this RN speaking with another patient regarding the dinner option being a grilled cheese sandwich and stated that she would like something else. RN made pt aware that she would attempt to contact dietary to see if they could prepare an alternative meal option for her. Per dietary they would attempt to see if they could prepare anything with food in the back but believe they may not have adequate supply for a meal tray. RN made pt aware and offered alternative options available in the ED overflow area but pt declined.
[2022-01-23] MEDS: traMADoL HCL 50 MG TABLET PO (23:13)
[2022-01-24 03:57] VITALS: BP 92/58; PULSE 82; RESP 16; TEMP 36.4; O2SAT 94
[2022-01-24] MEDS: Enoxaparin Sodium 40 MG/0.4 ML SYRINGE SUBCUT (06:10)
[2022-01-24] MEDS: cefTRIAXone sodium 1 GM in 0.9 % Sodium Chloride 50 ML IV (06:11)
[2022-01-24] MEDS: vancomycin HCL 1,250 MG in 0.9 % Sodium Chloride 250 ML 166.67 MG IV (06:45)
--- NOTE | 2022-01-24 06:46 | PC.NURSE ---
phlebotomists came up to draw the blood for CBC and BMP but two people can't get it at this time. dr Mdcaniel notified.
[2022-01-24 07:56] VITALS: BP 120/67; PULSE 92; RESP 18; TEMP 36.3; O2SAT 94
[2022-01-24 08:14] LABS: MANUAL DIFF FLAG NO
[2022-01-24 08:20] LABS: Basophils Percent Auto 0.4 % (0-2); Eosinophils Percent Auto 0.6 % (0-4); Hematocrit 34.8 % (37.0-47.0); Hemoglobin 11.2 g/dl (12.0-16.0); Imm Gran Abs Auto 0.05 X10*3/uL (0.00-0.03); Imm Gran Pct Auto 0.7 % (0.0-0.4); Lymphocytes Absolute Auto 0.8 X10*3/uL (1.2-4.9); Lymphocytes Percent Auto 10.7 % (20-40); Mean Corpuscular HGB Conc 32.2 g/dl (31.0-35.0); Mean Corpuscular Hemoglobin 28.1 pg (27.0-33.0); Mean Corpuscular Volume 87.2 fL (80.0-98.0); Mean Platelet Volume 11.7 fL (9.4-12.3); Monocytes Absolute Auto 0.4 X10*3/uL (0.1-1.2); Monocytes Percent Auto 5.8 % (2-11); Neutrophils Absolute Auto 5.7 x10*3/uL (2.0-8.3); Neutrophils Percent Auto 81.8 % (45-73); Platelet Count 100 X10*3/uL (160-400); Red Blood Count 3.99 X10*6/uL (4.20-5.50); Red Cell Distribution Width 12.9 % (11.0-16.0)
[2022-01-24 08:37] LABS: Anion Gap 16 (12-20); Blood Urea Nitrogen 13 mg/dL (9-16); Carbon Dioxide 19 mmol/L (22-29); Chloride 108 mmol/L (96-108); Creatinine Clr Calc Pharmacy 87.4; Estimated Glomerular Filt Rate > 60; Glucose Fasting 138 mg/dL (60-99); Potassium 4.3 mmol/L (3.3-5.1); Sodium 139 mmol/L (135-145)
[2022-01-24] MEDS: buPROPion HCl XL 300 MG TAB.ER.24H PO (09:11)
[2022-01-24] MEDS: Nicotine 14 MG PATCH.TD24 TRANSDERMA (09:11)
[2022-01-24] MEDS: Gabapentin 400 MG CAPSULE 800 MG PO ×3 (09:11→20:44)
[2022-01-24] MEDS: methADONE HCl 20 MG/2 ML ORAL.CONC 120 MG PO (09:12)
--- NOTE | 2022-01-24 09:15 | P.PNIM_ITS ---
Subjective Subjective Date of Service: 01/24/22 Interval History: cc: vaginal discharge, fevers interval history:improving Cardiovascular Cardiovascular: Reports no additional cardiovascular complaints Respiratory Respiratory: Reports no additional respiratory complaints Physical Exam Vital Signs: Vital Signs: Last Vital Signs Temp 97.3 F 01/24/22 07:56 Pulse 92 01/24/22 07:56 Resp 18 01/24/22 07:56 BP 120/67 01/24/22 07:56 Pulse Ox 94 01/24/22 07:56 O2 Del Method 01/24/22 07:56 BMI result Body Mass Index 30.7 Const: General: cooperative HEENT: Head: Yes normal to inspection Face and sinus: Yes normal facial exam Mouth: Normal oral and palatal mucosa present Teeth and gingiva: dentition normal Eyes: General: appearance normal, both eyes and all related structures Pupils: Equal, round and reactive pupils present Resp: Effort & Inspection: normal respiratory effort Cardio: Rate: regular rate Rhythm: regular rhythm GI: Palpation (GI): Soft to palpation and nontender : General: Yes no CVA tenderness Back/Spine/Pelvis: Back: no CVA tenderness Skin: General skin exam: no rashes or lesions noted Neuro: General: moves all extremities Cranial nerves: Yes Equal, round and reactive pupils present Extrem: Other: right leg erythema foot to knee with mild swelling dorsum foot Psych: Appearance: grossly normal Objective Data Active Medications Acetaminophen (Acetaminophen 325 Mg Tablet) 650 mg PO Q6H PRN PRN Reason: Pain, Mild (Pain Scale 1-3) Last Admin: 01/23/22 20:57 Dose: 650 mg Documented By: PARAM Baclofen (Baclofen 10 Mg Tablet) 10 mg PO TID [facility] Last Admin: 01/23/22 20:34 Dose: 10 mg Documented By: PARAM Bupropion HCl (Bupropion Hcl Xl 300 Mg Tab.Er.24h) 300 mg PO DAILY [facility] Last Admin: 01/23/22 12:07 Dose: Not Given Documented By: KAVYAOPEB Non-Admin Reason: Patient Refused Enoxaparin Sodium (Enoxaparin Sodium 40 Mg/0.4 Ml Syringe) 40 mg SUBCUT Q24H [facility] Last Admin: 01/24/22 06:10 Dose: 40 mg Documented By: KOJO Gabapentin (Gabapentin 400 Mg Capsule) 800 mg PO TID [facility] Last Admin: 01/23/22 20:34 Dose: 800 mg Documented By: PARAM Ceftriaxone Sodium 1 gm/ (Sodium Chloride) 50 mls @ 100 mls/hr IV Q24H [facility] Last Infusion: 01/24/22 06:42 Dose: 0 mls/hr Documented By: KOJO Vancomycin HCl 1,250 mg/ (Sodium Chloride) 250 mls @ 166.667 mls/hr IV Q24H [facility] Last Infusion: 01/24/22 08:44 Dose: 0 mls/hr Documented By: INDIRA Melatonin (Melatonin 3 Mg Tablet) 6 mg PO BEDTIME PRN PRN Reason: Insomnia Methadone HCl (Methadone Hcl 20 Mg/2 Ml Oral.Conc) 20 mg PO DAILY@1700 [facility] Last Admin: 01/23/22 17:40 Dose: 20 mg Documented By: ONOFRE Methadone HCl (Methadone Hcl 20 Mg/2 Ml Oral.Conc) 120 mg PO DAILY [facility] Last Admin: 01/23/22 12:23 Dose: 120 mg Documented By: ONOFRE Nicotine (Nicotine 14 Mg Patch.Td24) 14 mg TRANSDERMA DAILY [facility] Last Admin: 01/23/22 23:22 Dose: Not Given Documented By: KOJO Non-Admin Reason: Patient Refused Ondansetron HCl (Ondansetron Hcl 4 Mg/2 Ml Vial) 4 mg IVPUSH Q8H PRN PRN Reason: Nausea and Vomiting Pharmacy Consult (Consult Rx Vancomycin Dosing) 1 each MISCELLANE DAILY PRN PRN Reason: Consult order Pharmacy Consult (Consult Rx Perform Med Rec) 1 each MISCELLANE ONCE PRN PRN Reason: Consult order Pharmacy Consult (Consult Rx Vancomycin Dosing) 1 each MISCELLANE DAILY PRN PRN Reason: Consult order Sodium Chloride (0.9 % Sodium Chloride Flush 3 Ml Syringe) 3 ml IVFLUSH QSHIFT [facility] Last Admin: 01/24/22 07:15 Dose: Not Given Documented By: INDIRA Non-Admin Reason: IV Running Tramadol HCl (Tramadol Hcl 50 Mg Tablet) 50 mg PO ONCE PRN PRN Reason: Pain, Severe (Pain Scale 7-10) Last Admin: 01/23/22 23:13 Dose: 50 mg Documented By: KOJO Labs CBC & Chem 7: 01/24/22 08:08 01/24/22 08:08 Labs: Laboratory Results - last 24 hr 01/24/22 01/24/22 08:08 08:08 MCV 87.2 D MCH 28.1 MCHC 32.2 RDW 12.9 Plt Count 100 L D MPV 11.7 Immature Gran % (Auto) 0.7 H Neut % (Auto) 81.8 H Lymph % (Auto) 10.7 L Centre % (Auto) 5.8 Eos % (Auto) 0.6 Baso % (Auto) 0.4 Lymph # (Auto) 0.8 L [place] # (Auto) 0.4 Eos # (Auto) 0.0 Baso # (Auto) 0.0 Abs Immat Gran (auto) 0.05 H Absolute Neuts (auto) 5.7 Absolute Nucleated RBC 0.000 Nucleated RBC % (auto) 0.0 Anion Gap 16 Estim Creat Clear Calc 87.4 Estimated GFR > 60 Fasting Glucose 138 H Calcium 8.0 L Microbiology Microbiology Results: Microbiology 01/23/22 04:18 Blood Culture - Preliminary Blood - Venous Staphylococcus aureus 01/23/22 04:18 Blood Culture - Preliminary Blood - Venous Staphylococcus aureus Assessment and Plan (1) Cellulitis: Status: Acute Plan 26-year-old female with pertinent history of mood disorder, IV substance use disorder presented to the emergency department for evaluation of fever/generalized malaise/rash. Severe sepsis multiple sources UTI, cellulitis, STI, staph bateremia c/w vanc, ceftriaxone follow up repeat cultures, echo ID appreciated Acute kidney injury resolved HCV outpatient follow up opiate dependence restarted methadone DVT prophylaxis:? Lovenox 40 mg daily Full code reason for continued hospitalization:awaiting clearance of bacteremia Time Spent With Patient Time: Total time managing care of this patient today ____ minutes. Quality Stroke Does the patient have a stroke diagnosis?: No VTE Prior VTE?: No VTE Risk Level:: Medical - low VTE Device Contraindication: Treatment Not Indicated VTE Drug Contraindication: N/A - Med Ordered
--- NOTE | 2022-01-24 09:32 | HE.PHANOTE ---
Vancomycin Dosing Patient's renal function has improved greatly. Will adjust dose from vancomycin 1250 mg Q24H to vancomycin 1000 mg Q12H. New expected AUC 479 with a trough of 15.1. Level to be drawn 01/25 @ 0500. Pharmacy will continue to monitor renal function. Dianelys Le, PharmD
--- NOTE | 2022-01-24 14:51 | MHC.RECOVSUP ---
Recovery Support note: This journalists and other writers followed up with patient to provide support and to offer resources. Patient appeared to be resting but woke easily when this journalists and other writers entered the room. Patient reports she is doing well and continues to decline resources or referrals. Encouraged patient to inform staff if she would like to discuss her recovery and supports available further. Patient acknowledged.
[2022-01-24 15:23] VITALS: BP 122/64; PULSE 92; RESP 20; TEMP 36.9; O2SAT 93
[2022-01-24] MEDS: Acetaminophen 325 MG TABLET 650 MG PO (15:43)
[2022-01-24] MEDS: 0.9 % Sodium Chloride Flush 3 ML SYRINGE IVFLUSH ×2 (15:46→19:15)
[2022-01-24] MEDS: methADONE HCl 20 MG/2 ML ORAL.CONC PO (17:55)
[2022-01-24] MEDS: vancomycin HCL 1,000 MG in 0.9 % Sodium Chloride 250 ML 270 MG IV (18:00)
[2022-01-25 01:44] LABS: CT PCR NOT DETECTED (Not Detect.); NG PCR NOT DETECTED (Not Detect.)
[2022-01-25 03:44] VITALS: BP 134/83; PULSE 88; RESP 16; TEMP 36.4; O2SAT 96
[2022-01-25 05:05] LABS: Hematocrit 37.4 % (37.0-47.0); Hemoglobin 12.6 g/dl (12.0-16.0); Mean Corpuscular HGB Conc 33.7 g/dl (31.0-35.0); Mean Corpuscular Hemoglobin 27.3 pg (27.0-33.0); Mean Corpuscular Volume 81.1 fL (80.0-98.0); Mean Platelet Volume 11.2 fL (9.4-12.3); Platelet Count 146 X10*3/uL (160-400); Red Blood Count 4.61 X10*6/uL (4.20-5.50); Red Cell Distribution Width 12.9 % (11.0-16.0); White Blood Count 8.7 X10*3/uL (4.8-10.8)
[2022-01-25 05:23] LABS: Anion Gap 14 (12-20); Blood Urea Nitrogen 10 mg/dL (9-16); Calcium 8.5 mg/dL (8.4-10.2); Carbon Dioxide 27 mmol/L (22-29); Chloride 103 mmol/L (96-108); Creatinine Clr Calc Pharmacy 106.4; Estimated Glomerular Filt Rate > 60; Glucose Fasting 83 mg/dL (60-99); Sodium 140 mmol/L (135-145)
[2022-01-25] MEDS: cefTRIAXone sodium 1 GM in 0.9 % Sodium Chloride 50 ML IV (06:10)
[2022-01-25] MEDS: Enoxaparin Sodium 40 MG/0.4 ML SYRINGE SUBCUT (06:14)
--- NOTE | 2022-01-25 06:27 | HE.PHANOTE ---
Vancomycin Dosing Addendum Patient has had rapid improvement of renal function. Level is slightly subtherapeutic at 9. Will increase dose to 1250 mg Q12H. Next level 01/26 @ 1700. Eliza TorresD
[2022-01-25] MEDS: vancomycin HCL 1,250 MG in 0.9 % Sodium Chloride 250 ML 166.67 MG IV ×2 (06:50→18:02)
[2022-01-25 07:50] VITALS: BP 118/65; PULSE 76; RESP 18; TEMP 37.9; O2SAT 95
--- NOTE | 2022-01-25 08:35 | P.PNIM_ITS ---
Subjective Subjective Date of Service: 01/25/22 Interval History: cc: vaginal discharge, fevers interval history:improving Cardiovascular Cardiovascular: Reports no additional cardiovascular complaints Respiratory Respiratory: Reports no additional respiratory complaints Physical Exam Vital Signs: Vital Signs: Last Vital Signs Temp 100.3 F 01/25/22 07:50 Pulse 76 01/25/22 07:50 Resp 18 01/25/22 07:50 BP 118/65 01/25/22 07:50 Pulse Ox 95 01/25/22 07:50 O2 Del Method 01/25/22 07:50 BMI result Body Mass Index 30.7 Const: General: cooperative HEENT: Head: Yes normal to inspection Face and sinus: Yes normal facial exam Mouth: Normal oral and palatal mucosa present Teeth and gingiva: dentition normal Eyes: General: appearance normal, both eyes and all related structures Pupils: Equal, round and reactive pupils present Resp: Effort & Inspection: normal respiratory effort Cardio: Rate: regular rate Rhythm: regular rhythm GI: Palpation (GI): Soft to palpation and nontender : General: Yes no CVA tenderness Back/Spine/Pelvis: Back: no CVA tenderness Skin: General skin exam: no rashes or lesions noted Neuro: General: moves all extremities Cranial nerves: Yes Equal, round and reactive pupils present Extrem: Other: right leg erythema foot to knee with mild swelling dorsum foot Psych: Appearance: grossly normal Objective Data Active Medications Acetaminophen (Acetaminophen 325 Mg Tablet) 650 mg PO Q6H PRN PRN Reason: Pain, Mild (Pain Scale 1-3) Last Admin: 01/24/22 15:43 Dose: 650 mg Documented By: INDIRA Baclofen (Baclofen 10 Mg Tablet) 10 mg PO TID [facility] Last Admin: 01/24/22 20:46 Dose: Not Given Documented By: KOJO Non-Admin Reason: Patient Refused Bupropion HCl (Bupropion Hcl Xl 300 Mg Tab.Er.24h) 300 mg PO DAILY [facility] Last Admin: 01/24/22 09:11 Dose: 300 mg Documented By: INDIRA Enoxaparin Sodium (Enoxaparin Sodium 40 Mg/0.4 Ml Syringe) 40 mg SUBCUT Q24H [facility] Last Admin: 01/25/22 06:14 Dose: 40 mg Documented By: KOJO Gabapentin (Gabapentin 400 Mg Capsule) 800 mg PO TID [facility] Last Admin: 01/24/22 20:44 Dose: 800 mg Documented By: KOJO Vancomycin HCl 1,250 mg/ (Sodium Chloride) 250 mls @ 166.667 mls/hr IV Q12H [facility] Last Admin: 01/25/22 06:50 Dose: 166.67 mls/hr Documented By: KOJO Melatonin (Melatonin 3 Mg Tablet) 6 mg PO BEDTIME PRN PRN Reason: Insomnia Methadone HCl (Methadone Hcl 20 Mg/2 Ml Oral.Conc) 20 mg PO DAILY@1700 [facility] Last Admin: 01/24/22 17:55 Dose: 20 mg Documented By: INDIRA Methadone HCl (Methadone Hcl 20 Mg/2 Ml Oral.Conc) 120 mg PO DAILY [facility] Last Admin: 01/24/22 09:12 Dose: 120 mg Documented By: INDIRA Nicotine (Nicotine 14 Mg Patch.Td24) 14 mg TRANSDERMA DAILY [facility] Last Admin: 01/24/22 09:11 Dose: 14 mg Documented By: INDIRA Ondansetron HCl (Ondansetron Hcl 4 Mg/2 Ml Vial) 4 mg IVPUSH Q8H PRN PRN Reason: Nausea and Vomiting Pharmacy Consult (Consult Rx Vancomycin Dosing) 1 each MISCELLANE DAILY PRN PRN Reason: Consult order Pharmacy Consult (Consult Rx Perform Med Rec) 1 each MISCELLANE ONCE PRN PRN Reason: Consult order Pharmacy Consult (Consult Rx Vancomycin Dosing) 1 each MISCELLANE DAILY PRN PRN Reason: Consult order Sodium Chloride (0.9 % Sodium Chloride Flush 3 Ml Syringe) 3 ml IVFLUSH QSHIFT [facility] Last Admin: 01/25/22 07:17 Dose: Not Given Documented By: INDIRA Non-Admin Reason: IV Running Tramadol HCl (Tramadol Hcl 50 Mg Tablet) 50 mg PO ONCE PRN PRN Reason: Pain, Severe (Pain Scale 7-10) Last Admin: 01/23/22 23:13 Dose: 50 mg Documented By: KOJO Labs CBC & Chem 7: 01/25/22 04:56 01/25/22 04:56 Labs: Laboratory Results - last 24 hr 01/24/22 01/24/22 01/24/22 08:08 08:08 22:39 MCV 87.2 D MCH 28.1 MCHC 32.2 RDW 12.9 Plt Count 100 L D MPV 11.7 Immature Gran % (Auto) 0.7 H Neut % (Auto) 81.8 H Lymph % (Auto) 10.7 L [place] % (Auto) 5.8 Eos % (Auto) 0.6 Baso % (Auto) 0.4 Lymph # (Auto) 0.8 L Douglas # (Auto) 0.4 Eos # (Auto) 0.0 Baso # (Auto) 0.0 Abs Immat Gran (auto) 0.05 H Absolute Neuts (auto) 5.7 Absolute Nucleated RBC 0.000 Nucleated RBC % (auto) 0.0 Anion Gap 16 Estim Creat Clear Calc 87.4 Estimated GFR > 60 Fasting Glucose 138 H Calcium 8.0 L Random Vancomycin Chlam trachomat DNA PCR NOT DETECTED N.gonorrhoeae DNA (PCR) NOT DETECTED 01/25/22 01/25/22 01/25/22 04:56 04:56 04:56 MCV 81.1 D MCH 27.3 MCHC 33.7 RDW 12.9 Plt Count 146 L D MPV 11.2 Immature Gran % (Auto) Neut % (Auto) Lymph % (Auto) Douglas % (Auto) Eos % (Auto) Baso % (Auto) Lymph # (Auto) Douglas # (Auto) Eos # (Auto) Baso # (Auto) Abs Immat Gran (auto) Absolute Neuts (auto) Absolute Nucleated RBC 0.000 Nucleated RBC % (auto) 0.0 Anion Gap 14 Estim Creat Clear Calc 106.4 Estimated GFR > 60 Fasting Glucose 83 Calcium 8.5 D Random Vancomycin 9.0 L Chlam trachomat DNA PCR N.gonorrhoeae DNA (PCR) Microbiology Microbiology Results: Microbiology 01/23/22 04:18 Blood Culture - Final Blood - Venous Methicillin Res Staph Aureus 01/23/22 04:18 Blood Culture - Final Blood - Venous Methicillin Res Staph Aureus 01/23/22 06:35 Urine Culture - Final Urine clean catch - Clean Catch Midstream Assessment and Plan (1) Cellulitis: Status: Acute Plan 26-year-old female with pertinent history of mood disorder, IV substance use disorder presented to the emergency department for evaluation of fever/generalized malaise/rash. Severe sepsis cellulitis with MRSA bacteremia in IVDA will dc Rocephin continue vanc follow up repeat cultures, echo ID appreciated Acute kidney injury resolved HCV outpatient follow up opiate dependence restarted methadone DVT prophylaxis:? Lovenox 40 mg daily Full code reason for continued hospitalization:awaiting clearance of bacteremia Time Spent With Patient Time: Total time managing care of this patient today ____ minutes. Quality Stroke Does the patient have a stroke diagnosis?: No VTE Prior VTE?: No VTE Risk Level:: Medical - low VTE Device Contraindication: Treatment Not Indicated VTE Drug Contraindication: N/A - Med Ordered
[2022-01-25] MEDS: methADONE HCl 20 MG/2 ML ORAL.CONC 120 MG PO (09:58)
[2022-01-25] MEDS: Gabapentin 400 MG CAPSULE 800 MG PO ×3 (09:59→20:31)
[2022-01-25] MEDS: buPROPion HCl XL 300 MG TAB.ER.24H PO (09:59)
[2022-01-25] MEDS: Nicotine 14 MG PATCH.TD24 TRANSDERMA (09:59)
[2022-01-25 15:22] VITALS: BP 125/67; PULSE 88; RESP 20; TEMP 37.7; O2SAT 94
[2022-01-25] MEDS: Acetaminophen 325 MG TABLET 650 MG PO (15:32)
[2022-01-25] MEDS: Baclofen 10 MG TABLET PO ×2 (15:32→20:31)
[2022-01-25] MEDS: 0.9 % Sodium Chloride Flush 3 ML SYRINGE IVFLUSH ×2 (15:38→20:31)
[2022-01-25 17:00] LABS: Vancomycin Trough 11.6 mcg/mL (10.0-20.0)
[2022-01-25] MEDS: methADONE HCl 20 MG/2 ML ORAL.CONC PO (17:54)
[2022-01-25 18:32] VITALS: BP 114/68; PULSE 67; RESP 20; TEMP 37.2; O2SAT 95
[2022-01-25 19:36] VITALS: BP 102/55; PULSE 73; RESP 20; TEMP 36.8
[2022-01-26 04:00] VITALS: BP 123/77; PULSE 77; RESP 14; TEMP 36.6; O2SAT 94
[2022-01-26 06:15] LABS: Creatinine Clr Calc Pharmacy 106.4; Estimated Glomerular Filt Rate > 60
[2022-01-26] MEDS: Enoxaparin Sodium 40 MG/0.4 ML SYRINGE SUBCUT (06:20)
[2022-01-26] MEDS: vancomycin HCL 1,250 MG in 0.9 % Sodium Chloride 250 ML 166.7 MG IV (06:21)
--- NOTE | 2022-01-26 07:00 | CA_ITS ---
Transthoracic Echocardiogram Patient (Last, First, Middle): Luh James, Gender: Female Date of : 1995 Age: 26 Procedure Date: 01/26/2022 Procedure Type: Transthoracic Echocardiogram Location: S3E Height: 167.64 cm Weight: 86.18 kg BSA: 1.96 m2 Heart Rate: 70 bpm BP: 123 / 77 mmHg Shoe Fitter: SB Symptoms: Bacteremia Study Quality: Adequate ECG Rhythm: Sinus Conclusions: - The left ventricular systolic function is normal. The visually estimated ejection fraction is between 55-60%. - The basal inferior segment is hypokinetic. - Tricuspid valve vegetation noted. - There is mild tricuspid valve regurgitation. Findings Left Ventricle Normal left ventricular cavity size. There is normal left ventricular wall thickness. The left ventricular systolic function is normal. The visually estimated ejection fraction is between 55-60%. There is evidence of regional wall motion abnormalities. Diastolic function is normal for age. Wall Motion Rest Echo Findings The basal inferior segment is hypokinetic. Right Ventricle Mildly increased right ventricular cavity size. There is normal right ventricular systolic function. Atria Both atria are normal in size. Aortic Valve There is a normal trileaflet aortic valve. There is no aortic valve stenosis. There is no aortic valve regurgitation. Mitral Valve The mitral valve appears normal. There is no mitral valve regurgitation. There is no mitral valve stenosis. Pulmonic Valve The pulmonic valve is likely normal. There is trace pulmonic valve regurgitation. Tricuspid Valve Normal tricuspid valve structure. There is mild tricuspid valve regurgitation. There is no evidence of pulmonary hypertension. Mass attached to the leaflets, 1.2 x 0.6cm; suggestive of vegetation. Great Vessels The aortic annulus, sinuses of valsalva, and asc aorta are normal in size. Venous The inferior vena cava is normal in size and collapses greater than 50% with inspiration. Pericardium/Pleural There is no evidence of pericardial effusion. Prior Study Comparison No significant change compared to prior study dated: 08/20/2017. Tricuspid vegetation, wall motion abnormality noted before. Measurements 2D Linear Measurements IVSd: 0.89 0.6-0.9/0.6-1.0 cm LVIDd: 5.60 3.9-5.3/4.2-5.9 cm LVIDd Index: 2.86 2.4-3.2/2.2-3.1 cm/m2 LVIDs: 3.81 2.0-3.6 cm LVPWd: 0.67 0.7-1.1 cm LA Diam: 4.40 2.7-3.8/3.0-4.0 cm LAIDs Index: 2.24 1.5-2.3 cm/m2 LV Mass: 198.46 67-162/88-224 g LV Mass Index: 101.26 43-95/49-115 g/m2 LVOT Diam: 2.20 3.0+(-)1.3 cm 2D Systolic Function EF 4C: 62.10 >55% EF 2C: 57.10 >55% EF BiP: 58.40 >55% Mitral Valve MV Pk E: 0.66 MV PK A: 0.63 MV Decel Time: 192.00 E/A: 1.10 E'Lateral: 9.14 E'Medial: 7.83 E/E' Med: 8.50 E/E' Lat: 7.30 PHT: 56.00 MVA PHT: 3.93 Decel [place]: 3.47 Aortic Valve AoV Pk Christian: 1.32 AoV Pk Grad: 7.00 LVOT LVOT Pk Christian: 1.07 LVOT Mn Christian: 0.72 LVOT VTI: 0.23 LVOT Pk Grad: 5.00 LVOT Mn Grad: 2.00 LVOT Diam: 2.20 LVOT Area: 3.80 Diastolic Function MV Pk E: 0.66 MV Pk A: 0.63 E/A: 1.10 E'Medial: 7.83 E/E' Med: 8.50 E' Laterial: 9.14 E/E' Lat: 7.30 Right Ventricle TAPSE (mm): 23.90 TVS' Christian: 12.60 Tricuspid Valve TR Pk Christian: 2.27 TR Pk Grad: 21.00 RA Press: 8.00 RVSP: 29.00 Great Vessels Aorta Sinus of Valsalva: 2.60 2.0-3.5 cm Ao Asc: 2.80 2.1-3.4 cm Pulmonary Veins Pulm Vein S/D 1.20 Pulmonary Valve PV Pk Christian: 0.96 Peak PV Grad: 4.00 Updated in Other Vendor System with Status of Final Elroy Paniagua MD electronically signed on 01/26/2022 12:23:42 PM with status of Final
[2022-01-26 07:27] VITALS: BP 117/65; PULSE 94; RESP 18; TEMP 36.1; O2SAT 94
[2022-01-26 08:00] VITALS: BP 117/65; PULSE 74; RESP 18; TEMP 36.6; O2SAT 94
--- NOTE | 2022-01-26 08:52 | P.PNIM_ITS ---
Subjective Subjective Date of Service: 01/26/22 Interval History: cc: vaginal discharge, fevers interval history:improving, denies central back pain, urinary retention, or fecal incontinence Cardiovascular Cardiovascular: Reports no additional cardiovascular complaints Respiratory Respiratory: Reports no additional respiratory complaints Physical Exam Vital Signs: Vital Signs: Last Vital Signs Temp 97.8 F 01/26/22 08:00 Pulse 74 01/26/22 08:00 Resp 18 01/26/22 08:00 BP 117/65 01/26/22 08:00 Pulse Ox 94 01/26/22 08:00 O2 Del Method 01/26/22 08:00 O2 Flow Rate 92 01/25/22 19:36 BMI result Body Mass Index 30.7 Const: General: cooperative HEENT: Head: Yes normal to inspection Face and sinus: Yes normal facial exam Mouth: Normal oral and palatal mucosa present Teeth and gingiva: dentition normal Eyes: General: appearance normal, both eyes and all related structures Pupils: Equal, round and reactive pupils present Resp: Effort & Inspection: normal respiratory effort Cardio: Rate: regular rate Rhythm: regular rhythm GI: Palpation (GI): Soft to palpation and nontender : General: Yes no CVA tenderness Back/Spine/Pelvis: Back: no CVA tenderness Skin: General skin exam: no rashes or lesions noted Neuro: General: moves all extremities Cranial nerves: Yes Equal, round and reactive pupils present Extrem: Other: right leg erythema foot to knee with mild swelling dorsum foot Psych: Appearance: grossly normal Objective Data Active Medications Acetaminophen (Acetaminophen 325 Mg Tablet) 650 mg PO Q6H PRN PRN Reason: Pain, Mild (Pain Scale 1-3) Last Admin: 01/25/22 15:32 Dose: 650 mg Documented By: INDIRA Baclofen (Baclofen 10 Mg Tablet) 10 mg PO TID [facility] Last Admin: 01/25/22 20:31 Dose: 10 mg Documented By: TREY Bupropion HCl (Bupropion Hcl Xl 300 Mg Tab.Er.24h) 300 mg PO DAILY [facility] Last Admin: 01/25/22 09:59 Dose: 300 mg Documented By: INDIRA Enoxaparin Sodium (Enoxaparin Sodium 40 Mg/0.4 Ml Syringe) 40 mg SUBCUT Q24H [facility] Last Admin: 01/26/22 06:20 Dose: 40 mg Documented By: TREY Gabapentin (Gabapentin 400 Mg Capsule) 800 mg PO TID [facility] Last Admin: 01/25/22 20:31 Dose: 800 mg Documented By: TREY Vancomycin HCl 1,250 mg/ (Sodium Chloride) 250 mls @ 166.667 mls/hr IV Q12H [facility] Last Infusion: 01/26/22 08:38 Dose: 0 mls/hr Documented By: INDIRA Melatonin (Melatonin 3 Mg Tablet) 6 mg PO BEDTIME PRN PRN Reason: Insomnia Methadone HCl (Methadone Hcl 20 Mg/2 Ml Oral.Conc) 20 mg PO DAILY@1700 [facility] Last Admin: 01/25/22 17:54 Dose: 20 mg Documented By: INDIRA Methadone HCl (Methadone Hcl 20 Mg/2 Ml Oral.Conc) 120 mg PO DAILY [facility] Last Admin: 01/25/22 09:58 Dose: 120 mg Documented By: INDIRA Nicotine (Nicotine 14 Mg Patch.Td24) 14 mg TRANSDERMA DAILY [facility] Last Admin: 01/25/22 09:59 Dose: 14 mg Documented By: INDIRA Ondansetron HCl (Ondansetron Hcl 4 Mg/2 Ml Vial) 4 mg IVPUSH Q8H PRN PRN Reason: Nausea and Vomiting Pharmacy Consult (Consult Rx Vancomycin Dosing) 1 each MISCELLANE DAILY PRN PRN Reason: Consult order Pharmacy Consult (Consult Rx Perform Med Rec) 1 each MISCELLANE ONCE PRN PRN Reason: Consult order Pharmacy Consult (Consult Rx Vancomycin Dosing) 1 each MISCELLANE DAILY PRN PRN Reason: Consult order Sodium Chloride (0.9 % Sodium Chloride Flush 3 Ml Syringe) 3 ml IVFLUSH QSHIFT [facility] Last Admin: 01/26/22 07:45 Dose: Not Given Documented By: INDIRA Non-Admin Reason: IV Running Tramadol HCl (Tramadol Hcl 50 Mg Tablet) 50 mg PO ONCE PRN PRN Reason: Pain, Severe (Pain Scale 7-10) Last Admin: 01/23/22 23:13 Dose: 50 mg Documented By: KOJO Labs CBC & Chem 7: 01/25/22 04:56 01/26/22 05:45 Labs: Laboratory Results - last 24 hr 01/25/22 01/26/22 16:40 05:45 Estim Creat Clear Calc 106.4 Estimated GFR > 60 Vancomycin Trough 11.6 Microbiology Microbiology Results: Microbiology 01/25/22 04:57 Blood Culture - Preliminary Blood - Venous Prelim: GPC Gram Stain only 01/25/22 04:57 Blood Culture - Preliminary Blood - Venous Prelim: GPC Gram Stain only 01/23/22 04:18 Blood Culture - Final Blood - Venous Methicillin Res Staph Aureus 01/23/22 04:18 Blood Culture - Final Blood - Venous Methicillin Res Staph Aureus Assessment and Plan (1) Cellulitis: Status: Acute Plan 26-year-old female with pertinent history of mood disorder, IV substance use disorder presented to the emergency department for evaluation of fever /generalized malaise/rash. Severe sepsis cellulitis with MRSA bacteremia in IVDA continue vanc 2nd set from 01/25/22 still positive follow up repeat cultures 01/27, echo ID following Acute kidney injury resolved HCV outpatient follow up opiate dependence restarted methadone DVT prophylaxis:? Lovenox 40 mg daily Full code reason for continued hospitalization:awaiting clearance of bacteremia Time Spent With Patient Time: Total time managing care of this patient today ____ minutes. Quality Stroke Does the patient have a stroke diagnosis?: No VTE Prior VTE?: No VTE Risk Level:: Medical - low VTE Device Contraindication: Treatment Not Indicated VTE Drug Contraindication: N/A - Med Ordered
[2022-01-26] MEDS: methADONE HCl 20 MG/2 ML ORAL.CONC 120 MG PO (08:57)
[2022-01-26] MEDS: Gabapentin 400 MG CAPSULE 800 MG PO ×3 (08:57→20:39)
[2022-01-26] MEDS: buPROPion HCl XL 300 MG TAB.ER.24H PO (08:57)
[2022-01-26] MEDS: Nicotine 14 MG PATCH.TD24 TRANSDERMA (08:57)
--- NOTE | 2022-01-26 13:52 | MHC.CM.PN ---
PER MD ROUNDS, PT MAY NEED LT IV ABX AT DC REFERRALS MADE TO [facility] DUE TO PT BEING ON METHADONE AND ACTIVE SA AWAITING RESPONSES
[2022-01-26 14:01] LABS: C Reactive Protein 15.35 mg/dL (< or = 0.50)
[2022-01-26 14:25] LABS: Erythrocyte Sedimentation Rate 62 MM/HR (0-20)
--- NOTE | 2022-01-26 15:23 | PM.IDPN ---
Subjective Subjective Date of Service: 01/26/22 Critical Care Time (minutes): 15 Comment: patient complains of mid and lower back pain MRSA positive blood Objective Data Labs CBC & Chem 7: 01/25/22 04:56 01/26/22 05:45 Labs: Laboratory Results - last 24 hr 01/25/22 01/26/22 01/26/22 16:40 05:45 13:36 ESR 62 H Creatinine 0.87 Estim Creat Clear Calc 106.4 Estimated GFR > 60 C-Reactive Protein Vancomycin Trough 11.6 01/26/22 13:36 ESR Creatinine Estim Creat Clear Calc Estimated GFR C-Reactive Protein 15.35 H Vancomycin Trough Microbiology Microbiology Results: Microbiology 01/25/22 04:57 Blood - Venous Blood Culture - Final Methicillin Res Staph Aureus 01/25/22 04:57 Blood - Venous Blood Culture - Final Methicillin Res Staph Aureus 01/23/22 04:18 Blood - Venous Blood Culture - Final Methicillin Res Staph Aureus 01/23/22 04:18 Blood - Venous Blood Culture - Final Methicillin Res Staph Aureus 01/23/22 06:35 Urine clean catch - Clean Catch Midstream Urine Culture - Final Physical Exam Vital Signs: Vital Signs: Last Vital Signs Temp 97.8 F 01/26/22 08:00 Pulse 74 01/26/22 08:00 Resp 18 01/26/22 08:00 BP 117/65 01/26/22 08:00 Pulse Ox 94 01/26/22 08:00 O2 Del Method 01/26/22 08:00 O2 Flow Rate 92 01/25/22 19:36 BMI result Body Mass Index 30.7 HEENT: Head: Yes normal to inspection Resp: Effort & Inspection: normal respiratory effort Cardio: Rate: regular rate Rhythm: regular rhythm GI: Palpation (GI): Soft to palpation and nontender Back/Spine/Pelvis: Other: pain LS and thoracic area Assessment and Plan Assessment and plan (1) Opioid use disorder: Problem details: She has back pain Status: Acute Assessment and Plan: Check LS and thoracic spine MRI Echo today Would continue Vancomycin (2) Cellulitis: Status: Acute Time Spent With Patient Time: Total time managing care of this patient today ____ minutes.
[2022-01-26 15:35] VITALS: BP 120/70; PULSE 75; RESP 20; TEMP 36.6; O2SAT 92
[2022-01-26 18:27] LABS: Vancomycin Random 10.6 mcg/mL (15-20)
[2022-01-26] MEDS: methADONE HCl 20 MG/2 ML ORAL.CONC PO (18:33)
[2022-01-26] MEDS: 0.9 % Sodium Chloride Flush 3 ML SYRINGE IVFLUSH ×2 (18:35→20:40)
[2022-01-26 19:25] VITALS: BP 113/67; PULSE 70; RESP 16; TEMP 36.6; O2SAT 99
--- NOTE | 2022-01-26 20:08 | HE.PHANOTE ---
VANCO DOSE INCREASED TO 1500 MG Q12H FOR AUC OF 475
[2022-01-26] MEDS: Baclofen 10 MG TABLET PO (20:40)
[2022-01-26] MEDS: vancomycin HCL 1,500 MG in 0.9 % Sodium Chloride 500 ML 166.67 MG IV (20:53)
[2022-01-27 04:00] VITALS: BP 120/70; PULSE 64; RESP 13; TEMP 36.3; O2SAT 97
[2022-01-27] MEDS: Enoxaparin Sodium 40 MG/0.4 ML SYRINGE SUBCUT (05:52)
[2022-01-27 06:25] LABS: Hematocrit 35.5 % (37.0-47.0); Mean Corpuscular HGB Conc 33.8 g/dl (31.0-35.0); Mean Corpuscular Hemoglobin 27.2 pg (27.0-33.0); Mean Corpuscular Volume 80.5 fL (80.0-98.0); Mean Platelet Volume 10.5 fL (9.4-12.3); Platelet Count 191 X10*3/uL (160-400); Red Blood Count 4.41 X10*6/uL (4.20-5.50); Red Cell Distribution Width 12.8 % (11.0-16.0); White Blood Count 8.5 X10*3/uL (4.8-10.8)
[2022-01-27 07:09] LABS: Anion Gap 14 (12-20); Blood Urea Nitrogen 8 mg/dL (9-16); Calcium 8.5 mg/dL (8.4-10.2); Carbon Dioxide 27 mmol/L (22-29); Chloride 103 mmol/L (96-108); Creatinine Clr Calc Pharmacy 107.7; Estimated Glomerular Filt Rate > 60; Glucose Fasting 77 mg/dL (60-99); Potassium 3.9 mmol/L (3.3-5.1); Sodium 140 mmol/L (135-145)
[2022-01-27 07:22] VITALS: BP 108/61; PULSE 73; RESP 16; TEMP 36.2; O2SAT 94
--- NOTE | 2022-01-27 08:08 | P.PNIM_ITS ---
Subjective Subjective Date of Service: 01/27/22 Interval History: cc: vaginal discharge, fevers interval history:improving, urinary retention, or fecal incontinence Cardiovascular Cardiovascular: Reports no additional cardiovascular complaints Respiratory Respiratory: Reports no additional respiratory complaints Physical Exam Vital Signs: Vital Signs: Last Vital Signs Temp 97.1 F 01/27/22 07:22 Pulse 73 01/27/22 07:22 Resp 16 01/27/22 07:22 BP 108/61 01/27/22 07:22 Pulse Ox 94 01/27/22 07:22 O2 Del Method 01/27/22 07:22 O2 Flow Rate 92 01/25/22 19:36 BMI result Body Mass Index 30.7 HEENT: Head: Yes normal to inspection Resp: Effort & Inspection: normal respiratory effort Cardio: Rate: regular rate Rhythm: regular rhythm GI: Palpation (GI): Soft to palpation and nontender Back/Spine/Pelvis: Other: pain LS and thoracic area Objective Data Active Medications Acetaminophen (Acetaminophen 325 Mg Tablet) 650 mg PO Q6H PRN PRN Reason: Pain, Mild (Pain Scale 1-3) Last Admin: 01/25/22 15:32 Dose: 650 mg Documented By: INDIRA Baclofen (Baclofen 10 Mg Tablet) 10 mg PO TID [facility] Last Admin: 01/26/22 20:40 Dose: 10 mg Documented By: TREY Bupropion HCl (Bupropion Hcl Xl 300 Mg Tab.Er.24h) 300 mg PO DAILY [facility] Last Admin: 01/26/22 08:57 Dose: 300 mg Documented By: INDIRA Enoxaparin Sodium (Enoxaparin Sodium 40 Mg/0.4 Ml Syringe) 40 mg SUBCUT Q24H [facility] Last Admin: 01/27/22 05:52 Dose: 40 mg Documented By: TREY Gabapentin (Gabapentin 400 Mg Capsule) 800 mg PO TID [facility] Last Admin: 01/26/22 20:39 Dose: 800 mg Documented By: TREY Vancomycin HCl 1,500 mg/ (Sodium Chloride) 500 mls @ 166.667 mls/hr IV Q12H [facility] Last Infusion: 01/26/22 23:57 Dose: 0 mls/hr Documented By: TREY Melatonin (Melatonin 3 Mg Tablet) 6 mg PO BEDTIME PRN PRN Reason: Insomnia Methadone HCl (Methadone Hcl 20 Mg/2 Ml Oral.Conc) 20 mg PO DAILY@1700 [facility] Last Admin: 01/26/22 18:33 Dose: 20 mg Documented By: TEJINDER Methadone HCl (Methadone Hcl 20 Mg/2 Ml Oral.Conc) 120 mg PO DAILY [facility] Last Admin: 01/26/22 08:57 Dose: 120 mg Documented By: INDIRA Nicotine (Nicotine 14 Mg Patch.Td24) 14 mg TRANSDERMA DAILY [facility] Last Admin: 01/26/22 08:57 Dose: 14 mg Documented By: INDIRA Ondansetron HCl (Ondansetron Hcl 4 Mg/2 Ml Vial) 4 mg IVPUSH Q8H PRN PRN Reason: Nausea and Vomiting Pharmacy Consult (Consult Rx Perform Med Rec) 1 each MISCELLANE ONCE PRN PRN Reason: Consult order Pharmacy Consult (Consult Rx Vancomycin Dosing) 1 each MISCELLANE DAILY PRN PRN Reason: Consult order Sodium Chloride (0.9 % Sodium Chloride Flush 3 Ml Syringe) 3 ml IVFLUSH QSHIFT [facility] Last Admin: 01/26/22 20:40 Dose: 3 ml Documented By: TREY Tramadol HCl (Tramadol Hcl 50 Mg Tablet) 50 mg PO ONCE PRN PRN Reason: Pain, Severe (Pain Scale 7-10) Last Admin: 01/23/22 23:13 Dose: 50 mg Documented By: KOJO Labs CBC & Chem 7: 01/27/22 06:08 01/27/22 06:08 Labs: Laboratory Results - last 24 hr 01/26/22 01/26/22 01/26/22 13:36 13:36 17:48 MCV MCH MCHC RDW Plt Count MPV Absolute Nucleated RBC Nucleated RBC % (auto) ESR 62 H Anion Gap Estim Creat Clear Calc Estimated GFR Fasting Glucose Calcium C-Reactive Protein 15.35 H Random Vancomycin 10.6 L 01/27/22 01/27/22 06:08 06:08 MCV 80.5 MCH 27.2 MCHC 33.8 RDW 12.8 Plt Count 191 D MPV 10.5 Absolute Nucleated RBC 0.000 Nucleated RBC % (auto) 0.0 ESR Anion Gap 14 Estim Creat Clear Calc 107.7 Estimated GFR > 60 Fasting Glucose 77 Calcium 8.5 C-Reactive Protein Random Vancomycin Microbiology Microbiology Results: Microbiology 01/25/22 04:57 Blood Culture - Final Blood - Venous Methicillin Res Staph Aureus 01/25/22 04:57 Blood Culture - Final Blood - Venous Methicillin Res Staph Aureus Assessment and Plan (1) Cellulitis: Status: Acute Plan 26-year-old female with pertinent history of mood disorder, IV substance use disorder presented to the emergency department for evaluation of fever/generalized malaise/rash. Severe sepsis cellulitis with MRSA bacteremia in IVDA continue vanc 2nd set from 01/25/22 still positive, follow up 01/27/22 follow up repeat cultures 01/27, echo ID following check mri TLS spine Acute kidney injury resolved HCV outpatient follow up opiate dependence restarted methadone DVT prophylaxis:? Lovenox 40 mg daily Full code reason for continued hospitalization:awaiting clearance of bacteremia Time Spent With Patient Time: Total time managing care of this patient today ____ minutes. Quality Stroke Does the patient have a stroke diagnosis?: No VTE Prior VTE?: No VTE Risk Level:: Medical - low VTE Device Contraindication: Treatment Not Indicated VTE Drug Contraindication: N/A - Med Ordered
[2022-01-27] MEDS: methADONE HCl 20 MG/2 ML ORAL.CONC 120 MG PO (09:33)
[2022-01-27] MEDS: Gabapentin 400 MG CAPSULE 800 MG PO (09:33)
[2022-01-27] MEDS: Nicotine 14 MG PATCH.TD24 TRANSDERMA (09:34)
[2022-01-27] MEDS: Baclofen 10 MG TABLET PO (09:34)
[2022-01-27] MEDS: 0.9 % Sodium Chloride Flush 3 ML SYRINGE IVFLUSH (09:34)
[2022-01-27] MEDS: vancomycin HCL 1,500 MG in 0.9 % Sodium Chloride 500 ML 166.67 MG IV (09:35)
[2022-01-27] MEDS: buPROPion HCl XL 300 MG TAB.ER.24H PO (09:42)
--- NOTE | 2022-01-27 11:30 | PM.DS ---
DS: Providers Provider Date of Service: 01/27/22 Date of admission: 01/23/22 05:41 Primary care physician: Unknown Physician Consults: 01/23/22 06:14 Addiction Medicine Routine Consulting Provider: Addiction Covering Reason for consultation: cocaine and heroin use Consult to Care Team Routine Comment: Reason for consultation: cocaine and heroin use 01/23/22 08:17 Consult to Infectious Diseases Routine Consulting Provider: Neyda Schaefer Reason for consultation: IVDA, unprotected sex, sepsis DS: Diagnosis Discharge Diagnosis (1) Cellulitis: Status: Acute DS: Summary Hospital Course Hospital Course: from initial hpi: Chief Complaint: Fever This is a 26-year-old female with pertinent history of mood disorder, IV substance use disorder presents to the emergency department for evaluation of fever/generalized malaise/rash.? Patient states she has been feeling unwell for the last 2 days.? She has generalized body ache, malaise and poor appetite.? Patient noticed a rash all over body that started 2 days ago.? States her last IV drug use was on the day of presentation, she injected cocaine and heroin in her upper extremity.? States her hands hurt and she has difficulty making a wrist.? Also has been having right ankle pain.? Patient states she had unprotected vaginal and oral intercourse 2 days ago and thinks her symptoms started after.? Does have history of gonorrhea in the past.? Also has throat ache. Also endorses change in color and smell of urine with occasional urinary hesitancy and frequency.? Patient denies chest discomfort, palpitations, abdominal pain, shortness of breath, changes in bowel habits hospital course: Patient was admitted for severe sepsis secondary to cellulitis with MRSA bacteremia in a patient uses IV drugs. She was treated with IV vancomycin. Repeat blood cultures were still positive on 01/25/2022. There was concern for vertebral osteomyelitis and MRI was ordered, results are still pending. Patient had acute kidney injury on admission which resolved. For hepatitis C she will follow up outpatient. For opiate dependence She was restarted on methadone. patient still is bacteremia and has ongoing workup as well as requiring IV antibiotics, however, she decided to leave against medical advice, she is aware of all her diagnoses and potential for worsening condition including . Time Spent with Patient Time attestation: Total time managing care of this patient today ____ minutes. Discharge coordination time: Greater than 30 minutes Quality: Safe Use of Opioids Does Pt have an Active Cancer Diagnosis on the Problem List?: No Quality: Stroke Does the patient have a stroke diagnosis?: No Physical Exam Vital Signs: Vital Signs: Last Vital Signs Temp 97.1 F 01/27/22 07:22 Pulse 73 01/27/22 07:22 Resp 16 01/27/22 07:22 BP 108/61 01/27/22 07:22 Pulse Ox 94 01/27/22 07:22 O2 Del Method 01/27/22 07:22 O2 Flow Rate 92 01/25/22 19:36 BMI result Body Mass Index 30.7 HEENT: Head: Yes normal to inspection Resp: Effort & Inspection: normal respiratory effort Cardio: Rate: regular rate Rhythm: regular rhythm GI: Palpation (GI): Soft to palpation and nontender Back/Spine/Pelvis: Other: pain LS and thoracic area DS: Data Data Completed and Pending Labs on day of discharge: Laboratory Results - last 24 hr 01/26/22 01/26/22 01/26/22 13:36 13:36 17:48 WBC RBC Hgb Hct MCV MCH MCHC RDW Plt Count MPV Absolute Nucleated RBC Nucleated RBC % (auto) ESR 62 H Sodium Potassium Chloride Carbon Dioxide Anion Gap BUN Creatinine Estim Creat Clear Calc Estimated GFR Fasting Glucose Calcium C-Reactive Protein 15.35 H Random Vancomycin 10.6 L 01/27/22 01/27/22 06:08 06:08 WBC 8.5 RBC 4.41 Hgb 12.0 Hct 35.5 L MCV 80.5 MCH 27.2 MCHC 33.8 RDW 12.8 Plt Count 191 D MPV 10.5 Absolute Nucleated RBC 0.000 Nucleated RBC % (auto) 0.0 ESR Sodium 140 Potassium 3.9 Chloride 103 Carbon Dioxide 27 Anion Gap 14 BUN 8 L Creatinine 0.86 Estim Creat Clear Calc 107.7 Estimated GFR > 60 Fasting Glucose 77 Calcium 8.5 C-Reactive Protein Random Vancomycin Discharge Plan Discharge Anticipated Discharge Date/Time: 01/27/22 11:29 Patient Disposition: Left Against Medical Advice Discharge Diagnosis: mrsa bacteremia Referrals: Physician,Unknown J [Primary Care Provider] - 1 Week Discharge Medications: No Action gabapentin 800 mg tablet 1 tab PO TID baclofen 10 mg tablet 1 tab PO TID bupropion HCl 300 mg tablet extended release 24 hr 1 tab PO QAM methadone [Methadone Intensol] 10 mg/mL Concentrate 20 mg PO QPM methadone [Methadone Intensol] 10 mg/mL Concentrate 120 mg PO QAM Discharge Orders: Discharge Order (Routine); Ordered 01/27/22 Ordered By: Guillermo Mayberry Diet: Advance to usual diet Activity on Discharge: As tolerated Care Plan Goals: recovery Health Concerns: mrsa bacteremia Plan of Treatment: cannot treat outside of hospital Assessment: see above
[2022-01-28 22:54] LABS: Treponema pallidum Ab FTA ABS Nonreactive (Nonreactive)
[2022-01-29 20:29] LABS: N. gonorrhoeae RNA TMA, Throat NOT DETECTED
== END 2022-01-27 12:03 | disposition left against medical advice (07) | DRG 720 ==
LOC: HO.ED 01-23 03:00 → HO.EDOVER 01-23 05:52 → HO.S3 01-23 19:12
PROVIDERS: Admitting Provider Student in an Organized Health Care Education/Training Program; Emergency Provider Internal Medicine; Visit Provider Internal Medicine
DX: A41.9 Sepsis, unspecified organism (principal); N17.9 Acute kidney failure, unspecified; L03.319 Cellulitis of trunk, unspecified; L03.115 Cellulitis of right lower limb; F14.10 Cocaine abuse, uncomplicated; B19.20 Unspecified viral hepatitis C without hepatic coma; N39.0 Urinary tract infection, site not specified; B95.62 Methicillin resistant Staphylococcus aureus infection as the cause of diseases classified elsewhere; R65.20 Severe sepsis without septic shock; F11.20 Opioid dependence, uncomplicated; J45.909 Unspecified asthma, uncomplicated; Z20.822 Contact with and (suspected) exposure to COVID-19; Z56.0 Unemployment, unspecified; Z88.8 Allergy status to other drugs, medicaments and biological substances; Z79.899 Other long term (current) drug therapy
CPT/HCPCS: 36415; 71046; 71250; 80048; 80053; 80202; 80307; 81001; 81025; 82565; 83605; 85025; 85027; 85652; 86140; 86704; 86706; 86709; 86780; 86803; 87040; 87077; 87086; 87147; 87186; 87205; 87340; 87389; 87491; 87502; 87591; 87635; 87651; 93306; 99285; J0696; J1650; J2405; J2543; J3370; Q9957

== ENCOUNTER 2022-12-18 16:45 | Emergency (ER) | payer OTHER, SELFPAY ==
[2022-12-18 17:06] VITALS: BP 101/74; PULSE 89; RESP 18; TEMP 37.3; O2SAT 91; BMI 32.3
--- NOTE | 2022-12-18 17:15 | ED_ITS ---
HPI - Nausea/Vomiting/Diarrhea General Chief complaint: Nausea/Vomiting/Diarrhea Stated complaint: sick, weak, vomiting Time Seen by Provider: 12/18/22 19:25 Source: patient Mode of arrival: ambulatory Limitations: no limitations History of Present Illness HPI Narrative: Patient is a 27 year old assigned female at with a history of mood disorder presenting to the emergency department today with nausea and vomiting. Patient states that she is concerned she may have food poisioning as she has had a few hours of nausea and vomiting after ingesting a meal. Patient denies any dizziness, abdominal pain, fever, chills, blurry vision, double vision, loss of vision, chest pain, difficulty breathing, shortness of breath, back pain, night sweats, pain with urination, increased urinary frequency, increased urinary urgency, blood in her urine or stool, syncope, recent trauma or falls, bowel incontinence, bladder incontinence, bowel retention, bladder retention, or any other complaints at this time. MD elicited complaint: nausea Associated nausea: Yes Related Data Home Medications Medication Instructions Recorded Confirmed baclofen 10 mg tablet 1 tab PO TID 01/23/22 01/23/22 bupropion HCl 300 mg 24 hr tablet, 1 tab PO QAM 01/23/22 01/23/22 extended release gabapentin 800 mg tablet 1 tab PO TID 01/23/22 01/23/22 methadone 10 mg/mL oral 20 mg PO QPM 01/23/22 01/23/22 concentrate (Methadone Intensol) methadone 10 mg/mL oral 120 mg PO QAM 01/23/22 01/23/22 concentrate (Methadone Intensol) Allergies Allergy/AdvReac Type Severity Reaction Status Date / Time paroxetine [From PAXIL] Allergy Severe S1 Verified 12/18/22 17:10 lurasidone [From LATUDA] Allergy Unknown CMS Verified 12/18/22 17:10 REACTION Review of Systems 2 Constitutional: Constitutional: Reports no additional constitutional complaints, Denies chills, Denies fever(s) and Denies night sweats Eyes: Eyes: Reports no additional eye complaints, Denies blurry vision, Denies change in vision, Denies diplopia, Denies eye discharge, Denies loss of vision and Denies eye pain ENT: Denies dizziness Cardiovascular: Cardiovascular: Reports no additional cardiovascular complaints, Denies chest pain, Denies lightheadedness, Denies Loss of Consciousness and Denies dyspnea Respiratory: Respiratory: Reports no additional respiratory complaints and Denies dyspnea Gastrointestinal: Gastrointestinal: Reports no additional gastrointestinal complaints, Denies abdominal pain, Denies melena, Denies hematochezia, Denies change in bowel habits, Denies change in stool character, Reports nausea and Reports vomiting Genitourinary: Genitourinary: Denies hematuria, Denies urinary frequency, Denies dysuria, Denies urinary incontinence, Denies urinary hesitancy and Denies urinary urgency Musculoskeletal: Musculoskeletal: Reports no additional musculoskeletal complaints, Denies numbness and Denies tingling Neurologic: Denies dizziness, Denies loss of vision, Denies numbness and Denies tingling Psychiatric: Psychiatric: Reports no additional psychiatric complaints Endocrine: Endocrine: Reports no additional endocrine complaints Hematologic/Lymphatic: Hematologic/Lymphatic: Reports no additional hematologic/lymphatic complaints Allergic/Immunologic: Allergic/Immunologic: Reports no additional allergic/immunologic complaints PMFSH Past Medical History Attestation statement: The following information was validated with the patient. Source: old records reviewed and nursing notes reviewed Medical History UTI (urinary tract infection) Cellulitis Sepsis Substance use disorder Mood disorder Asthma Social History Social History Household Members: Other Household Members Other:: 2 Housing: Apartment Do you presently have visiting nurse or other home services: No Alcohol intake: never Patient Tobacco Use Status: Never used Tobacco Tobacco use type: Cigarette Cigarettes Per Day: 7 Smoked in Last 30 Days: No Second Hand Smoke Exposure: No Substance Use Type: Crack/Cocaine, Heroin, IV Drugs, Marijuana and Opiates Advance Directives: No Patient : No service: No Current occupational status: unemployed Physical Exam 2 Vital Signs: Vital Signs: Last Vital Signs Temp 99.2 F 12/18/22 17:06 Pulse 55 12/18/22 19:30 Resp 19 12/18/22 19:30 BP 96/51 L 12/18/22 19:30 Pulse Ox 96 12/18/22 19:30 O2 Del Method Room Air 12/18/22 19:30 BMI result Body Mass Index 32.3 Const: General: cooperative, no acute distress, alert and awake Nutritional Appearance: well nourished Orientation/consciousness: patient oriented x3 Limitations: no limitations HEENT: Head: Yes normal to inspection and Yes atraumatic Ears: hearing grossly normal bilaterally and external ears normal General nose exam: Normal external nose present, no nasal discharge noted and no epistaxis Face and sinus: Yes normal facial exam, No abrasion and No laceration Mouth: Normal oral and palatal mucosa present, no drooling and no muffled voice Eyes: General: appearance normal, both eyes and all related structures P eriorbital: periorbital findings normal Eyelids: Yes eyelids normal C onjunctivae: conjunctivae normal Pupils: Equal, round and reactive pupils present EOM: EOMs intact bilaterally Neck: Neck: Yes normal visual inspection, Yes full ROM and Yes no lymphadenopathy Chest: Chest palpation & inspection: normal inspection of the chest Resp: Effort & Inspection: normal respiratory effort and able to speak in complete sentences GI: Inspection: Yes normal to inspection Neuro: General: patient oriented x3 and moves all extremities Cranial nerves: Yes Equal, round and reactive pupils present Cognition (Neuro): n ormal cognition Motor exam (neuro): 5/5 motor strength present throughout Sensory Exam: Normal double simultaneous stimulation for sensation C oordination: [id number] test normal Extrem: General: Yes normal to inspection, Yes full ROM and Yes capillary refill normal Psych: Appearance: grossly normal Mental Status: mental status grossly normal Affect: normal affect Attitude: cooperative Thought process: N ormal thought process present Thought content: Normal thought content present Insight: Good insight present (Psych) Course Course Course Narrative: This is a rapid medical exam: Additional HPI, ROS, PE not included below will be deferred to primary provider. Patient is a 27-year-old female presenting to the emergency department with complaint of nausea and vomiting which began several hours ago after eating chicken soup. Denies diarrhea or abdominal pain. Denies fevers. Complains of generalized weakness. 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 Plan: swab for flu/Covid, basic labs Medical Decision Making Medical Decision Making MDM Narrative: Patient is a 27 year old assigned female at with a history of a mood disorder presenting to the emergency department today with nausea and vomiting. Patient's physical exam was unremarkable. Patient's blood work was unremarkable. Patient's urine showed no acute process. I explained my physical exam findings as well as all test results to the patient. I answered all questions asked by the patient. I stressed the importance of the patient taking her medication as prescribed. I stressed the importance of the patient following up with her primary care provider. I stressed the importance of the patient returning to the emergency department immediately if her symptoms were to worsen or if she were to develop any dizziness, shortness of breath, difficulty breathing, chest pain, blurry vision, loss of vision, nausea, vomiting, abdominal pain, fever, chills, back pain, or any other complaints. Patient verbalized agreement and understanding with this treatment plan and discharge. Lab Data 12/18/22 17:36 12/18/22 17:36 Labs: Lab Results 12/18/22 12/18/22 Range/Units 17:36 17:37 WBC 6.8 (4.8-10.8) X10*3/uL RBC 5.20 (4.20-5.50) X10*6/uL Hgb 14.1 (12.0-16.0) g/dl Hct 43.0 D (37.0-47.0) % MCV 82.7 (80.0-98.0) fL MCH 27.1 (27.0-33.0) pg MCHC 32.8 (31.0-35.0) g/dl RDW 13.1 (11.0-16.0) % Plt Count 213 (160-400) X10*3/uL MPV 10.0 (9.4-12.3) fL Immature Gran % (Auto) 0.3 (0.0-0.4) % Neut % (Auto) 75.9 H (45-73) % Lymph % (Auto) 17.8 L (20-40) % Clinton % (Auto) 5.4 (2-11) % Eos % (Auto) 0.3 (0-4) % Baso % (Auto) 0.3 (0-2) % Lymph # (Auto) 1.2 (1.2-4.9) X10*3/uL [place] # (Auto) 0.4 (0.1-1.2) X10*3/uL Eos # (Auto) 0.0 (0.0-0.4) X10*3/uL Baso # (Auto) 0.0 (0.0-0.2) X10*3/uL Abs Immat Gran (auto) 0.02 (0.00-0.03) X10*3/uL Absolute Neuts (auto) 5.2 (2.0-8.3) x10*3/uL Absolute Nucleated RBC 0.000 (0.0-0.012) X10*3/uL Nucleated RBC % (auto) 0.0 (0.0-0.2) /100WBC Sodium 140 (135-145) mmol/L Potassium 3.8 (3.3-5.1) mmol/L Chloride 103 (96-108) mmol/L Carbon Dioxide 29 (22-29) mmol/L Anion Gap 12 (12-20) BUN 17 H (9-16) mg/dL Creatinine 1.05 (0.5-1.4) mg/dL Estim Creat Clear Calc 89.7 Estimated GFR > 60 Random Glucose 91 (60-115) mg/dL Calcium 9.2 D (8.4-10.2) mg/dL Total Bilirubin 0.2 (0.0-1.0) mg/dL AST 101 H (5-31) U/L ALT 146 H (0-31) U/L Alkaline Phosphatase 119 H (39-117) U/L Total Protein 7.7 (6.5-8.0) g/dL Albumin 3.8 (3.5-5.0) g/dL COVID-19 (TONEY) Negative (Negative) COVID-19 Clin Com See Note Influenza Type A (SHREYA) Negative (Negative) Influenza Type B (SHREYA) Negative (Negative) Influenza A & B Note See Note Discharge Plan Discharge Clinical Impression: Viral illness Patient Disposition: Home, Self-Care Instructions: Viral Syndrome (ED) Additional Instructions: Follow up with your primary care provider. Return to the emergency department immediately if your symptoms worsen or if you develop any dizziness, shortness of breath, difficulty breathing, chest pain, blurry vision, loss of vision, nausea, vomiting, abdominal pain, fever, chills, back pain, or any other complaints. Prescriptions: No Action gabapentin 800 mg tablet 1 tab PO TID baclofen 10 mg tablet 1 tab PO TID bupropion HCl 300 mg tablet extended release 24 hr 1 tab PO QAM methadone [Methadone Intensol] 10 mg/mL Concentrate 20 mg PO QPM methadone [Methadone Intensol] 10 mg/mL Concentrate 120 mg PO QAM Referrals: [facility] [place] Family Medicine [Provider Group] (Call to establish and follow up with a primary care provider. If you already have a primary care provider, please follow up with them.) [facility] [place] Primary CareAlexy [Provider Group] (Call to establish and follow up with a primary care provider. If you already have a primary care provider, please follow up with them.) [facility] [place] Primary CareYvonne [Provider Group] (Call to establish and follow up with a primary care provider. If you already have a primary care provider, please follow up with them.) Interventions: ED Discharge Assessment Last Done: 12/18/22 19:44 Discharge Date/Time: 12/18/22 19:45 Print Language: [place]
[2022-12-18 17:44] LABS: MANUAL DIFF FLAG NO
[2022-12-18 18:01] LABS: Alanine Aminotransferase 146 U/L (0-31); Albumin Level 3.8 g/dL (3.5-5.0); Alkaline Phosphatase 119 U/L (39-117); Anion Gap 12 (12-20); Aspartate Amino Transferase 101 U/L (5-31); Bilirubin Total 0.2 mg/dL (0.0-1.0); Blood Urea Nitrogen 17 mg/dL (9-16); Calcium 9.2 mg/dL (8.4-10.2); Carbon Dioxide 29 mmol/L (22-29); Chloride 103 mmol/L (96-108); Creatinine Clr Calc Pharmacy 89.7; Estimated Glomerular Filt Rate > 60; Glucose Random 91 mg/dL (60-115); Potassium 3.8 mmol/L (3.3-5.1); Sodium 140 mmol/L (135-145); Total Protein 7.7 g/dL (6.5-8.0)
[2022-12-18 18:09] LABS: IDNOW Serial# 9DB6401D; Influenza A Negative (Negative); Influenza B2 Negative (Negative)
[2022-12-18 18:09] LABS: COVID-19 Test Negative (Negative); IDNOW Serial# BCCEAD1C
[2022-12-18 18:11] LABS: Basophils Percent Auto 0.3 % (0-2); Eosinophils Percent Auto 0.3 % (0-4); Hemoglobin 14.1 g/dl (12.0-16.0); Imm Gran Abs Auto 0.02 X10*3/uL (0.00-0.03); Imm Gran Pct Auto 0.3 % (0.0-0.4); Lymphocytes Absolute Auto 1.2 X10*3/uL (1.2-4.9); Lymphocytes Percent Auto 17.8 % (20-40); Mean Corpuscular HGB Conc 32.8 g/dl (31.0-35.0); Mean Corpuscular Hemoglobin 27.1 pg (27.0-33.0); Mean Corpuscular Volume 82.7 fL (80.0-98.0); Monocytes Absolute Auto 0.4 X10*3/uL (0.1-1.2); Monocytes Percent Auto 5.4 % (2-11); Neutrophils Absolute Auto 5.2 x10*3/uL (2.0-8.3); Neutrophils Percent Auto 75.9 % (45-73); Platelet Count 213 X10*3/uL (160-400); Red Cell Distribution Width 13.1 % (11.0-16.0); White Blood Count 6.8 X10*3/uL (4.8-10.8)
[2022-12-18 19:30] VITALS: BP 96/51; PULSE 55; RESP 19; O2SAT 96
--- NOTE | 2022-12-18 19:39 | PC.NURSE ---
Pt walked in to room with a steady gait reporting nausea and vomiting after earing cereal, last episode of vomiting was around 1600 in the parking lot per pt. Pt reports no pain at this time, and states that i feel much better, and not nauseas any more. labs were drawn and sent to lab. Pt aware of plan.
== END 2022-12-18 19:45 | disposition home or self-care (01) ==
PROVIDERS: Registered Nurse Emergency; Emergency Provider Emergency Medicine
DX: B34.9 Viral infection, unspecified (principal); R11.2 Nausea with vomiting, unspecified; R19.7 Diarrhea, unspecified; Z11.52 Encounter for screening for COVID-19; Z20.822 Contact with and (suspected) exposure to COVID-19; Z79.899 Other long term (current) drug therapy
CPT/HCPCS: 80053; 85025; 87502; 87635; 99283; 99284

== ENCOUNTER 2023-05-09 00:14 | Emergency (ER) | payer OTHER, SELFPAY ==
[2023-05-09 00:27] VITALS: BP 112/68; PULSE 68; RESP 16; TEMP 36.7; O2SAT 94; BMI 32.3
--- NOTE | 2023-05-09 01:15 | ED.GENADULT ---
HPI - General Adult General Chief complaint: General Medical Stated complaint: Gen Med Time Seen by Provider: 05/09/23 00:46 Source: patient and RN notes reviewed Mode of arrival: ambulatory Limitations: no limitations History of Present Illness HPI narrative: This is a 27-year-old female, with a history of opioid use disorder on methadone, and asthma, who presents emergency department complaints of green, foul odor vaginal discharge since yesterday. Patient states that she has a new sexual partner as of several weeks ago. She states that she also has noticed cloudy urine. She denies any fevers, chills, chest pain, shortness of breath, abdominal pain, nausea, vomiting or diarrhea. She states that she is still using IV drugs, states that she uses half a bundle every 2-3 days. She states that she does not want any recovery services today. No other complaints or concerns at this time. MD complaint: Vaginal discharge Onset (ago): day(s) Radiation: non-radiation Pain Consistency: constant Relieving factors: none Exacerbating factors: none Associated symptoms: denies other symptoms Treatments prior to arrival: none Related Data Home Medications Medication Instructions Recorded Confirmed baclofen 10 mg tablet 1 tab PO TID 01/23/22 01/23/22 bupropion HCl 300 mg 24 hr tablet, 1 tab PO QAM 01/23/22 01/23/22 extended release gabapentin 800 mg tablet 1 tab PO TID 01/23/22 01/23/22 methadone 10 mg/mL oral 20 mg PO QPM 01/23/22 01/23/22 concentrate (Methadone Intensol) methadone 10 mg/mL oral 120 mg PO QAM 01/23/22 01/23/22 concentrate (Methadone Intensol) Allergies Allergy/AdvReac Type Severity Reaction Status Date / Time paroxetine [From PAXIL] Allergy Severe S1 Verified 05/09/23 00:26 lurasidone [From LATUDA] Allergy Unknown CMS Verified 05/09/23 00:26 REACTION Review of Systems Review of Systems: Yes all other systems are reviewed and are negative Constitutional: Constitutional: Reports as per HPI [facility] Past Medical History Attestation statement: The following information was validated with the patient. Medical History UTI (urinary tract infection) Cellulitis Sepsis Substance use disorder Mood disorder Asthma Social History Social History Household Members: Other Household Members Other:: 2 Housing: Apartment Do you presently have visiting nurse or other home services: No Alcohol intake: never Patient Tobacco Use Status: Never used Tobacco Tobacco use type: Cigarette Cigarettes Per Day: 7 Second Hand Smoke Exposure: No Substance Use Type: Crack/Cocaine, Heroin, IV Drugs, Marijuana and Opiates Advance Directives: No Advance Directives Information Provided: No service: No Current occupational status: unemployed Physical Exam ED Vital Signs: Vital Signs - 24 hr 05/09/23 00:27 Temperature 98.0 F Pulse Rate 68 Respiratory Rate 16 Blood Pressure 112/68 Pulse Oximetry 94 Oxygen Delivery Method Room Air BMI result Body Mass Index 32.3 Const General: cooperative, comfortable and no acute distress Orientation/consciousness: patient oriented x3 Limitations: no limitations HENMT Head: Yes normal to inspection, Yes normocephalic and Yes atraumatic Ears: hearing grossly normal bilaterally General nose exam: Normal external nose present Face and sinus: Yes normal facial exam Mouth: Normal oral and palatal mucosa present, oropharynx normal and moist mucous membranes Throat: Yes posterior oropharynx normal Eyes General: appearance normal, both eyes and all related structures Eyelids: Yes eyelids normal Conjunctivae: conjunctivae normal Sclerae: sclerae normal Pupils: Equal, round and reactive pupils present EOM: EOMs intact bilaterally Neck Neck: Yes normal visual inspection, Yes full ROM and Yes no lymphadenopathy Lymphatic: no lymphadenopathy noted Chest Chest palpation & inspection: normal inspection of the chest Resp Effort & Inspection: normal respiratory effort and able to speak in complete sentences Auscultation: clear to auscultation bilaterally, no crackles, no rales, no rhonchi and no wheezes Cardio Rate: regular rate Rhythm: regular rhythm Heart sounds: S1 normal heart sound present and S2 normal heart sound present GI Other: Abdomen is soft, nontender, nondistended Inspection: Yes normal to inspection Other: Pelvic examination performed with Laura ED security technician present. Green/yellow thin vaginal discharge noted in the vaginal vault. Patient has no cervical motion tenderness General: Yes Bimanual renal exam normal bilaterally External Female Exam: normal external appearance, normal appearance of the urethra, No Abnormal introitus, No erythema, No externally tender, No external swelling, No lesion, No laceration, No External ecchymosis (female), No urethral discharge, No lesion and No tender Speculum Exam - Vagina: normal appearance of the vagina, normal palpation and introitus not gaping Speculum Exam - Cervix: normal appearance of the cervix and Cervical os closed Bimanual exam- vagina & uterus: normal palpation Bimanual Exam- Adnexa, other: normal adnexae Skin General skin exam: no rashes or lesions noted Trauma: no lacerations or abrasions Wounds: no wounds Neuro General: patient oriented x3 and moves all extremities Cranial nerves: Yes Equal, round and reactive pupils present Extrem General: Yes normal to inspection Right upper extremity: normal to inspection Left upper extremity: normal to inspection Right lower extremity: normal to inspection Left lower extremity: normal to inspection Course Reevaluation(s) Reevaluation #1: Urine returns, patient is not . Urine appears to be contaminated, with large leuk esterases. Preliminary testing revealing patient did test positive for Trichomonas. Given this finding, will treat prophylactically with ceftriaxone, doxycycline and Flagyl. Discussed findings with patient as well as workup. Given return precautions. We advised patient that we will call her with any abnormal results from her testing performed today. She understands and agrees with plan. Patient stable for discharge. Time: 02:14 Medical Decision Making Medical Decision Making MDM Narrative: This is a 27-year-old female, with a history of IV DA on methadone, asthma, who presents emergency department with complaints of abnormal vaginal discharge since yesterday. On arrival, vital signs within normal limits. Pelvic examination performed, positive yellow/green drainage. Differential diagnoses include STI, gonorrhea, chlamydia, syphilis, urinary tract infection, . She does have a new sexual partners concern for STIs. She is agreeable for prophylactic treatment. She has no cervical motion tenderness therefore pelvic inflammatory disease unlikely. Differential Diagnosis Differential Diagnoses: The differential diagnosis associated with the presentation includes See above Admission/Observation Consideration of admission/observation: Escalation of care including admission/observation considered Escalation of care including admission/observation considered however given workup today not warranted at this time. Lab Data Labs: Lab Results 05/09/23 Range/Units 01:44 Urine Color Yellow Urine Appearance Clear Urine pH 7.0 (5.0-9.0) Ur Specific [place] 1.015 (1.005-1.025) Urine Protein Negative (Neg-Trace) mg/dL Urine Glucose (UA) Negative (Negative) mg/dL Urine Ketones Negative (Negative) mg/dL Urine Blood Trace H (Negative) Urine Nitrite Negative (Negative) Ur Leukocyte Esterase Large (3+) H (Negative) Urine RBC 0-2 (0-2) /HPF Urine WBC 11-20 (0-5) /HPF Ur Squamous Epith Cells 0-2 (0-2) /HPF Urine Bacteria None Seen (None Seen) Hyaline Casts 6-10 (0-2) /LPF Urine Test NEGATIVE (NEGATIVE) Discharge Plan Discharge Clinical Impression: Vaginal discharge, Possible exposure to STI Patient Disposition: Still a Patient Instructions: Postexposure Prophylaxis (ED), Vaginal Discharge (ED) Additional Instructions: Your seen in the emergency department due to possible STI exposure and abnormal vaginal discharge. We will call you with any abnormal results from your testing performed today. We treated you prophylactically with antibiotics. Please continue taking prescribed antibiotic as directed. Finish the entire course even if your feeling better. Inform all sexual partners if you do test positive for any STI. Avoid sexual intercourse until you complete antibiotics. You may follow-up with [facility] as they can perform this testing routinely. They typically take walk-in appointments. If any new or worsening symptoms occur including but not limited to chest pain, shortness of breath, abdominal pain, worsening discharge, please return for re-evaluation. Prescriptions: No Action gabapentin 800 mg tablet 1 tab PO TID baclofen 10 mg tablet 1 tab PO TID bupropion HCl 300 mg tablet extended release 24 hr 1 tab PO QAM methadone [Methadone Intensol] 10 mg/mL Concentrate 20 mg PO QPM methadone [Methadone Intensol] 10 mg/mL Concentrate 120 mg PO QAM
--- NOTE | 2023-05-09 01:18 | MHC.EDTECH ---
Assisted Dee ALFARO with a pelvic,swabs were obtained and sent to lab. Patient tolerated procedure well.
[2023-05-09 01:54] LABS: Appearance Urine Clear; Color Urine Yellow; Glucose Urine UA Negative (Negative); Leukocyte Esterase Urine Large (3+) (Negative); Nitrite Urine Negative (Negative); Specific Gravity - Urine 1.015 (1.005-1.025); UMIC TRIGGER UACC YES; Urine Blood Trace (Negative); Urine Ketones Negative (Negative); Urine Protein Negative (Neg-Trace)
[2023-05-09 01:55] LABS: UPreg QC Valid YES; Urine Pregnancy NEGATIVE (NEGATIVE)
[2023-05-09 02:08] LABS: Bacteria Urine None Seen (None Seen); RBC Urine 0-2 /HPF (0-2); Squamous Epithelial Cell Urine 0-2 /HPF (0-2); UACC Culture Trigger YES
[2023-05-09] MEDS: cefTRIAXone sodium 500 MG, Lidocaine HCl 1 % MPF 1 ML IM (02:34)
[2023-05-09] MEDS: Doxycycline Monohydrate 100 MG CAPSULE PO (02:34)
[2023-05-09] MEDS: metroNIDAZOLE 500 MG TABLET PO (02:34)
[2023-05-09 02:55] VITALS: BP 112/68; PULSE 68; RESP 16; TEMP 36.7; O2SAT 94
[2023-05-09 08:49] LABS: CT PCR NOT DETECTED (Not Detect.); NG PCR NOT DETECTED (Not Detect.)
[2023-05-10 04:02] LABS: Syphilis Screen Nonreactive (Nonreactive)
[2023-05-10 04:17] LABS: HIV AB/AG Nonreactive (Nonreactive); HIV Num 1 0.06 S/CO (0.00-0.99)
[2023-05-10 13:28] LABS: BV Int Neg Control Negative (Negative); BV Int Pos Control Positive (Positive)
== END 2023-05-09 02:45 | disposition home or self-care (01) ==
PROVIDERS: Physician Assistant Medical; Emergency Provider Emergency Medicine
DX: N89.8 Other specified noninflammatory disorders of vagina (principal); A59.9 Trichomoniasis, unspecified; F11.20 Opioid dependence, uncomplicated; J45.909 Unspecified asthma, uncomplicated; Z20.2 Contact with and (suspected) exposure to infections with a predominantly sexual mode of transmission
CPT/HCPCS: 0353U; 36415; 81001; 81025; 86780; 87086; 87389; 87480; 87510; 87660; 96372; 99284; J0696